=== PATIENT | male | born 1930 | race Caucasian/White ===

== ENCOUNTER 2017-03-05 19:06 | Inpatient (IN) | payer MEDICARE, BC ==
[~2017-03-05] VITALS: Ht 182.9 cm; Wt 75.0 kg
[2017-03-05 19:24] VITALS: Ht 182.9 cm; Wt 75.0 kg
[2017-03-05] MEDS ORDERED: SOD CHLORIDE 0.9% 1,000 ML IV STA (19:31)
[2017-03-05] MEDS ORDERED: DILTIAZEM 30 MG TAB PO ONE (20:00)
[2017-03-05] MEDS ORDERED: DILTIAZEM 25 MG INJ IV ONE (20:00)
[2017-03-05 20:24] LABS: BASOPHILS % 0.3 % (0.0-2.0); EOSINOPHILS % 0.1 % (0.0-7.0); HEMATOCRIT 45.5 % (42.0-52.0); HEMOGLOBIN 14.8 g/dl (14.0-18.0); LYMPHOCYTES # 1.1 10^3/ul (0.8-2.9); LYMPHOCYTES % 7.8 % (15.0-51.0); MEAN CORPUSCULAR HEMOGLOBIN 29.2 pg (29.0-33.0); MEAN CORPUSCULAR HGB CONC 32.5 g/dl (32.0-37.0); MEAN CORPUSCULAR VOLUME 89.9 fl (82.0-101.0); MEAN PLATELET VOLUME 10.7 fl (7.4-10.4); MONOCYTES % 6.7 % (0.0-11.0); NEUTROPHIL # 12.3 10^3/ul (1.6-7.5); NEUTROPHILS % 84.5 % (39.0-77.0); PLATELET COUNT 365 10^3/UL (140-415); RED BLOOD COUNT 5.06 10^6/ul (4.70-6.10); RED CELL DISTRIBUTION WIDTH 13.5 % (11.5-14.5); WHITE BLOOD COUNT 14.5 10^3/ul (4.8-10.8)
[2017-03-05 20:29] LABS: ADD UMIC YES; UR ASCORBIC ACID NEGATIVE (NEGATIVE); UR BILIRUBIN (Dip) NEGATIVE (NEGATIVE); UR BLOOD (Dip) NEGATIVE (NEGATIVE); UR CLARITY CLEAR (CLEAR); UR COLOR YELLOW (YELLOW); UR GLUCOSE (Dip) NEGATIVE (NEGATIVE); UR KETONES (Dip) NEGATIVE (NEGATIVE); UR LEUKOCYTE ESTERASE (Dip) NEGATIVE Leu/ul (NEGATIVE); UR NITRITE (Dip) NEGATIVE (NEGATIVE); UR RBC 1 /HPF (0-5); UR SPECIFIC GRAVITY (Dip) 1.023 (1.003-1.030); UR TOTAL PROTEIN (Dip) 1+ mg/dl (NEGATIVE); UR UROBILINOGEN (Dip) 2+ mg/dL (NEGATIVE)
--- NOTE | 2017-03-05 20:31 | RADRPT ---
PROCEDURE: Chest x-ray CLINICAL INDICATION: Altered mental status TECHNIQUE: Chest single view COMPARISON: None FINDINGS: There is mild cardiomegaly and an sclerotic aortic calcification. A 6 cm mass-like density is noted in the left lower lung. There is elevation left hemidiaphragm. Right lung is clear. Costophrenic ang les sharp. Bones are osteopenic. There is advanced degenerative change of bilateral glenohumeral patricia nts. IMPRESSION: 1. 6 cm mass-like density in the left lower lung. Recommend a chest CT for further evaluation. 2. Elevated left hemidiaphragm. 3. Mild cardiomegaly and atherosclerotic aortic calcification. 4. Advanced degenerative change of both shoulders RPTAT: HH .Dalton Vincent MD, Date Time Electronically viewed and signed by .Dalton Vincent MD, on 03/05/2017 20:31 .W/
[2017-03-05 20:52] LABS: ALANINE AMINOTRANSFERASE 23 IU/L (13-69); ALBUMIN 4.3 g/dl (3.3-4.9); ALBUMIN/GLOBULIN RATIO 1.16; ALKALINE PHOSPHATASE 115 IU/L (42-121); ANION GAP 17 (8-16); ASPARTATE AMINO TRANSFERASE 22 IU/L (15-46); BILIRUBIN,INDIRECT 1.2 mg/dl (0-1.1); BILIRUBIN,TOTAL 1.2 mg/dl (0.2-1.3); BLOOD UREA NITROGEN 16 mg/dl (7-20); CALCIUM 9.8 mg/dl (8.4-10.2); CARBON DIOXIDE 23 mmol/L (21-31); CHLORIDE 108 mmol/L (97-110); CREATININE 2.16 mg/dl (0.61-1.24); GLUCOSE 138 mg/dl (70-220); SODIUM 144 mmol/L (135-144)
[2017-03-05 21:00] LABS: BARBITURATES Negative (NEGATIVE); BENZODIAZEPINES Negative (NEGATIVE); CANNABINOIDS Negative (NEGATIVE); COCAINE Negative (NEGATIVE); OPIATES Negative (NEGATIVE)
[2017-03-05 21:01] LABS: ACETAMINOPHEN < 10.0 ug/ml (10.0-30.0); ETHANOL < 10.0 mg/dl; SALICYLATE < 1.0 mg/dl (5.0-30.0)
--- NOTE | 2017-03-05 21:04 | RADRPT ---
PROCEDURE: CT Brain without contrast. CLINICAL INDICATION: Altered mental status. TECHNIQUE: A CT of the brain without contrast was performed utilizing axial sections from the skul l base through the vertex. The patient was scanned without intravenous contrast enhancement. Sagitta l and coronal reformatted images were obtained using the data from the axial images. Total exam DLP is 110.25 mGy-cm. CTDIvol is 44.73 mGy. One or more of the following dose reduction techniques we re used: Automated exposure control, adjustment of the mA and/or kV according to patient size, use o f iterative reconstruction technique. COMPARISON: None available FINDINGS: There is normal delgado-white matter differentiation. There is enlargement of the ventricles and subarachnoid spaces consistent with atrophy. There is decreased attenuation of the periventricular white matter consistent with microangiopathic ischemic change. There is no intracranial hemorrhage or space-occupying lesion. There are vascular calcifications consistent with atherosclerosis. There is no skull fracture or lytic lesion. IMPRESSION: 1. Atrophy. 2. Microangiopathic ischemic change. 3. Atherosclerosis. 4. Otherwise unremarkable noncontrast CT scan of the brain. RPTAT: QQ .Olegario Perez MD, Date Time Electronically viewed and signed by .Olegario Perez MD, on 03/05/2017 21:04 .R/
[2017-03-05] MEDS ORDERED: AMLO5TAB4 PO (21:06)
[2017-03-05] MEDS ORDERED: LOSA1TAB19 PO (21:07)
[2017-03-05] MEDS ORDERED: DRON400T2 PO (21:07)
--- NOTE | 2017-03-05 21:10 | RADRPT ---
PROCEDURE: CT Cervical Spine without contrast. CLINICAL INDICATION: Neck pain. TECHNIQUE: Helical axial sections were obtained through the cervical spine without intravenous con trast enhancement. Sagittal and coronal reformatted images were accomplished using the data from th e axial images. Total exam DLP is 361.32 mGy-cm. CTDIvol is 17.06 mGy. One or more of the followi ng dose reduction techniques were used: Automated exposure control, adjustment of the mA and/or kV a ccording to patient size, use of iterative reconstruction technique. COMPARISON: No prior studies are available for comparison. FINDINGS: There is normal stature and alignment of the vertebrae. There is no fracture. At C2-3, there is a left foraminal stenosis due to hypertrophy of the facet joints. At C3-4, there is a right foraminal stenosis due to hypertrophy of the facet and uncovertebral joint s. At C4-5, there is right foraminal stenosis due to hypertrophy of the facet and uncovertebral joints. At C5-6, there is right foraminal stenosis due to hypertrophy of the facet and uncovertebral joints. At C6-7, there is right foraminal stenosis due to hypertrophy of the facet and uncovertebral joints. There is no lytic or blastic lesion. The paravertebral soft tissues are normal. IMPRESSION: 1. Multilevel spondylitic change as described above. 2. No acute abnormality. RPTAT: QQ .Olegario Perez MD, Date Time Electronically viewed and signed by .Olegario Perez MD, on 03/05/2017 21:09 .R/
[2017-03-05] MEDS ORDERED: ACETAMINOPHEN 325 MG TAB PO PRN (21:30)
[2017-03-05] MEDS ORDERED: ONDANSETRON 4 MG INJ IV PRN (21:30)
--- NOTE | 2017-03-05 21:40 | ERA ---
ER Documentation Chief Complaint Date/Time DATE: 03/05/17 TIME: 21:37 Chief Complaint aloc HPI Patient is an 86-year-old male who presents altered. Please note the history and physical exam is limited secondary to the patient's mental status. The patient was brought in by ambulance and police. He was found wandering outside and he says he is feeling dizzy. He does admit to falling and hitting his head. He does not know how he got to where he was but he does know that he is from [place]. He is able to give me the year and says it is "17" and he knows his name and he knows what state he lives in. Upon review of old medical records this is the patient's first visit to the emergency department. ROS All systems reviewed and are negative except as per history of present illness. Medications Home Meds Reported Medications Dronedarone Hydrochloride* (Multaq*) 400 Mg Tablet, 400 MG PO BID, TAB 03/05/17 Losartan-Hydrochlorothiazide (Losartan-HCTZ) 50-12.5 Mg Tab, 1 TAB PO DAILY, TAB 03/05/17 Amlodipine Besylate* (Norvasc*) 5 Mg Tablet, 5 MG PO DAILY, TAB 03/05/17 Allergies Allergies: Coded Allergies: No Known Allergy (Unverified , 03/05/17) PMhx/Soc Hx Cardiac Disorders: Yes (AFIB) Hx Alcohol Use: No Hx Tobacco Use: No Smoking Status: Never smoker FmHx Family History: No diabetes Physical Exam Vitals Vital Signs Date Time Temp Pulse Resp B/P Pulse Ox O2 Delivery O2 Flow Rate FiO2 03/05/17 21:15 105 20 122/87 95 Room Air 03/05/17 19:55 144 20 104/67 95 03/05/17 19:24 98.0 98 20 107/67 95 Physical Exam Const: Patient is disheveled and dirty Head: Abrasion to the top of the skull Eyes: Normal Conjunctiva ENT: Normal External Ears, Nose and Mouth. Neck: Full range of motion..~ No meningismus. Resp: Clear to auscultation bilaterally Cardio: Regular rate and rhythm, no murmurs Abd: Soft, non tender, non distended. Normal bowel sounds Skin: Abrasion to the top of the skull without laceration Back: No midline or flank tenderness Ext: No cyanosis, or edema Neur: Awake but confused, able to move all 4 extremities equally Psych: Normal Mood and Affect Result Diagram: 03/05/17195403/05/171954 Results 24 hrs Laboratory Tests Test 03/05/17 19:55 03/05/17 20:09 White Blood Count 14.510^3/ul Red Blood Count 5.0610^6/ul Hemoglobin 14.8g/dl Hematocrit 45.5% Mean Corpuscular Volume 89.9fl Mean Corpuscular Hemoglobin 29.2pg Mean Corpuscular Hemoglobin Concent 32.5g/dl Red Cell Distribution Width 13.5% Platelet Count 45390^3/UL Mean Platelet Volume 10.7fl Neutrophils % 84.5% Lymphocytes % 7.8% Monocytes % 6.7% Eosinophils % 0.1% Basophils % 0.3% Nucleated Red Blood Cells % 0.0/100WBC Neutrophils # 12.310^3/ul Lymphocytes # 1.110^3/ul Monocytes # 1.010^3/ul Eosinophils # 0.010^3/ul Basophils # 0.010^3/ul Nucleated Red Blood Cells # 0.010^3/ul Sodium Level 144mmol/L Potassium Level 4.0mmol/L Chloride Level 108mmol/L Carbon Dioxide Level 23mmol/L Anion Gap 17 Blood Urea Nitrogen 16mg/dl Creatinine 2.16mg/dl Glucose Level 138mg/dl Calcium Level 9.8mg/dl Total Bilirubin 1.2mg/dl Direct Bilirubin 0.00mg/dl Indirect Bilirubin 1.2mg/dl Aspartate Amino Transf (AST/SGOT) 22IU/L Alanine Aminotransferase (ALT/SGPT) 23IU/L Alkaline Phosphatase 115IU/L Total Protein 8.0g/dl Albumin 4.3g/dl Globulin 3.70g/dl Albumin/Globulin Ratio 1.16 Salicylates Level < 1.0mg/dl Acetaminophen Level < 10.0ug/ml Ethyl Alcohol Level < 10.0mg/dl Urine Color YELLOW Urine Clarity CLEAR Urine pH 5.0 Urine Specific [place] 1.023 Urine Ketones NEGATIVEmg/dL Urine Nitrite NEGATIVEmg/dL Urine Bilirubin NEGATIVEmg/dL Urine Urobilinogen 2+mg/dL Urine Leukocyte Esterase NEGATIVELeu/ul Urine Microscopic RBC 1/HPF Urine Microscopic WBC 2/HPF Urine Hemoglobin NEGATIVEmg/dL Urine Glucose NEGATIVEmg/dL Urine Total Protein 1+mg/dl Urine Opiates Screen Negative Urine Barbiturates Negative Urine Amphetamines Screen Negative Urine Benzodiazepines Screen Negative Urine Cocaine Screen Negative Urine Cannabinoids Negative Current Medications Medications (Trade) Dose Ordered Sig/Chad Route PRN Reason Start Time Stop Time Status Last Admin Dose Admin Sodium Chloride (NS) 1,000 ml @ 1,000 mls/hr Q1H STAT IV 03/05/17 19:31 03/05/17 20:30 DC 03/05/17 20:15 Diltiazem HCl (Cardizem Iv) 10 mg ONCE ONCE IV 03/05/17 20:00 03/05/17 20:06 DC 03/05/17 20:15 Diltiazem HCl (Cardizem) 30 mg ONCE ONCE PO 03/05/17 20:00 03/05/17 20:01 DC 03/05/17 20:43 Ondansetron HCl (Zofran Inj) 4 mg ER BRIDGE PRN IV NAUSEA AND/OR VOMITING 03/05/17 21:30 03/06/17 21:29 Acetaminophen (Tylenol Tab) 650 mg ER BRIDGE PRN PO MILD PAIN/FEVER 03/05/17 21:30 03/06/17 21:29 Procedures/MDM CT brain shows no intracranial hemorrhage or mass per radiology. EKG read by me: Rate/Rhythm: Atrial fibrillation with rapid ventricular response Intervals: Normal Impression: A. fib with RVR Patient is an 86 year old male who presents with dizziness. He was found wandering and confused. In the emergency department he was found to have A. fib with RVR and was given diltiazem IV and by mouth. The patient was also found to have acute renal failure as he has a creatinine of greater than 2 and no old creatinine to compare to. I see no obvious signs of serious bacterial infection at this time. I doubt stroke, intracranial hemorrhage, or intracranial mass. The patient will be admitted to the care of Dr. Jacques from the panel team for further treatment. He will be admitted to a telemetry bed. Critical Care: Time: 35 minutes excluding all billable procedures. Treatments/Evaluations: Close monitoring and treatment of unstable vital signs, cardiorespiratory, and neurologic status, while maintaining tight balance of fluid, respiratory, and cardiac interventions. Departure Diagnosis: Primary Impression: Atrial fibrillation with RVR Additional Impressions: ARF (acute renal failure) Qualified Code: N17.9 - Acute renal failure, unspecified acute renal failure type Altered level of consciousness Condition: [place] Alston MD Mar 05, 2017 21:40
[2017-03-05 23:54] VITALS: PULSE 92
[2017-03-06] VITALS (14 sets, daily range): BP systolic 104–122; BP diastolic 77–84; PULSE 78–107; RESP 16–19
[2017-03-06] MEDS ORDERED: ALBUTEROL/IPRATROPIUM (NEB) 3 ML AMP HHN PRN (01:30)
[2017-03-06] MEDS ORDERED: NITROGLYCERIN (SL) 0.4 MG TAB SL PRN (01:30)
[2017-03-06] MEDS ORDERED: morphine 2 MG INJ IV PRN (01:30)
[2017-03-06] MEDS ORDERED: ONDANSETRON 4 MG INJ IV PRN (01:30)
[2017-03-06] MEDS ORDERED: ACETAMINOPHEN 325 MG TAB PO PRN (01:30)
[2017-03-06] MEDS ORDERED: NACL 0.9% 3 ML SYG IV SCH (01:30)
[2017-03-06] MEDS: METOPROLOL 25 MG TAB PO SCH ×3 (02:07→20:45)
[2017-03-06 03:00] LABS: TROPONIN-I 0.027 ng/ml (0.00-0.12)
[2017-03-06 03:09] LABS: CK-MB 1.09 ng/ml (0.0-2.4)
--- NOTE | 2017-03-06 05:47 | HP ---
Date/Time of Note Date/Time of Note DATE: 03/06/17 TIME: 05:31 Assessment/Plan VTE Prophylaxis VTE Prophylaxis Intervention: heparin Lines/Catheters IV C[facility]from [facility] Assessment/Plan Assessment/Plan 1. Acute encephalopathy: Resolved -Patient probably with some dementia -Head CT negative for acute findings -We will consider additional imaging with MRI -Neurology consult -Physical therapy eval -Check TSH, folate and B12 2. A-fib with RVR -s/p IV Cardizem and now is rate controlled -2D echo and cardiology consult 3. Presumed CKD -will give IV fluid for now -If no significant improvement or worsens, will order renal ultrasound and place a nephrology consult 4. Left lower lung masslike density -CT chest for further evaluation 5. Sepsis: As evidenced by leukocytosis and tachycardia -Masslike density that was shown on the chest x-ray could possibly be an infectious etiology -UA negative for UTI -Will start on antibiotic -Follow-up culture results 6. 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 Patient was brought to the ER for altered mentation. His is currently at a facility because of altered mentation. Patient left his house driving to see his . He was however found by police walking around [employer]. Seems like he has been wandering around for a few hours. Patient was confused and did not know why he was walking around. Per ER notes, he reported falling down and hitting his head but on my questioning he denied. Currently he does not have any complaints. He is alert and oriented and no neurological deficits on exam. In ER, he was found to be in A-fib with RVR. He was given IV diltiazem and now is rate controlled. Labs shows a WBC of 14.5 and creatinine of 2.[address] of the head showed microangiopathic ischemic change and atrophy. CT of the neck multilevel spondylosis. Chest x-ray with 6 cm mass-like density in the left lower lung. Recommend a chest CT for further evaluation. PMH/Family/Social Social History Smoking Status: Former smoker Exam/Review of Systems Vital Signs Vitals Vital Signs Date Time p Pulse Resp B/P Pulse Ox O2 Delivery O2 Flow Rate FiO2 03/06/17 04:06 98.1 76 18 122/79 97 03/05/17 23:25 Room Air Exam Constitutional: alert, oriented, well developed Head: lacerations Eyes: EOMI, PERRL Respiratory: clear to auscultation, normal air movement Cardiovascular: irregular rhythm Gastrointestinal: non-tender, soft Extremities: normal pulses Labs Result Diagram: 03/05/17195403/05/171954 Medications Medications Current Medications Ondansetron HCl (Zofran Inj) 4 mg Q6H PRN IV NAUSEA AND/OR VOMITING; Start at 01:30 Aspirin (Aspirin) 81 mg DAILY PO ; Start 03/06/17 at 09:00 Nitroglycerin (Nitroglycerin (Sl Tab) 0.4 Mg) 1 tab Q5M PRN SL CHEST PAIN; Start 03/06/17 at 01:30 Acetaminophen (Tylenol Tab) 650 mg Q6H PRN PO PAIN LEVEL 1-3 OR FEVER; Start at 01:30 Morphine Sulfate (morphine) 2 mg Q4H PRN IV PAIN LEVEL 7-10; Start 03/06/17 at 01:30 Famotidine (Pepcid) 20 mg DAILY PO ; Start 03/06/17 at 09:00 Heparin Sodium (Porcine) (Heparin (5000 Units/0.5 ml)) 5,000 unit Q12 SC ; Start 03/06/17 at 09:00 Metoprolol Tartrate (Lopressor) 25 mg BID PO Last administered on 03/06/17t 02: 07; Admin Dose 25 MG; Start 03/06/17 at 01:30 CHRISTIAN MEDINA MD Mar 06, 2017 05:43
[2017-03-06 07:35] LABS: BASOPHILS % 0.4 % (0.0-2.0); EOSINOPHILS % 0.4 % (0.0-7.0); HEMATOCRIT 39.5 % (42.0-52.0); HEMOGLOBIN 12.3 g/dl (14.0-18.0); LYMPHOCYTES # 2.7 10^3/ul (0.8-2.9); MEAN CORPUSCULAR HGB CONC 31.1 g/dl (32.0-37.0); MEAN CORPUSCULAR VOLUME 89.8 fl (82.0-101.0); MONOCYTE # 0.8 10^3/ul (0.3-0.9); MONOCYTES % 8.3 % (0.0-11.0); NEUTROPHIL # 5.6 10^3/ul (1.6-7.5); NEUTROPHILS % 61.6 % (39.0-77.0); PLATELET COUNT 286 10^3/UL (140-415); RED CELL DISTRIBUTION WIDTH 13.8 % (11.5-14.5); WHITE BLOOD COUNT 9.2 10^3/ul (4.8-10.8)
[2017-03-06 08:07] LABS: ALBUMIN 2.9 g/dl (3.3-4.9); ALBUMIN/GLOBULIN RATIO 0.9; BILIRUBIN,INDIRECT 0.5 mg/dl (0-1.1); BILIRUBIN,TOTAL 0.5 mg/dl (0.2-1.3); CALCIUM 8.8 mg/dl (8.4-10.2); CHOL/HDL RATIO 3.3 RATIO; POTASSIUM 4.5 mmol/L (3.5-5.1); TOTAL PROTEIN 6.1 g/dl (6.1-8.1)
[2017-03-06 08:12] LABS: TROPONIN-I 0.034 ng/ml (0.00-0.12)
[2017-03-06 08:16] LABS: CK-MB 1.59 ng/ml (0.0-2.4)
[2017-03-06 08:34] LABS: THYROID STIMULATING HORMONE 2.18 MIU/L (0.465-4.680)
[2017-03-06] MEDS: ASPIRIN 81 MG TAB PO SCH (08:58)
[2017-03-06] MEDS: FAMOTIDINE 20 MG TAB PO SCH (08:58)
[2017-03-06] MEDS: HEPARIN 5,000 UNIT/0.5 ML VIAL SC SCH ×2 (09:10→20:45)
--- NOTE | 2017-03-06 13:34 | CONS ---
Date/Time of Note Date/Time of Note DATE: 03/06/17 TIME: 13:28 Assessment/Plan Assessment/Plan Additional Assessment/Plan Atrial fibrillation with rapid ventricular rates, improved Encephalopathy Abnormal renal function Lung mass -Heart rate is currently improved. Was previously on Multaq. Would hold nephrotoxic meds including diuretic. Check echocardiogram. Consultation Date/Type/Reason Admit Date/Time Mar 05, 2017 at 21:29 Type of Consultation: cv Reason for Consultation Atrial fibrillation Hx of Present Illness This is a 86-year-old male with past medical history of atrial fibrillation, possible cancer who presented with altered mental status and atrial fibrillation with rapid ventricular rates. Discussed with patient, he is not sure the details of why he is in the hospital. He denies any chest pain, palpitations, shortness of breath. He denies exertional shortness of breath, palpitations or chest pain. He does have a known history of atrial ablation but has not been on any anticoagulants. He was taking Multaq in the past. 12 point review of systems was performed with all pertinent positives and negatives mentioned above and all else is negative Past Medical History Atrial fibrillation Possible malignancy Past Surgical History Head surgery Family History Significant Family History: no pertinent family hx Social History Alcohol Use: none Smoking Status: Former smoker Exam/Review of Systems Vital Signs Vitals Vital Signs Date Time Temp Pulse Resp B/P Pulse Ox O2 Delivery O2 Flow Rate FiO2 03/06/17 12:15 78 03/06/17 11:53 98.2 16 104/84 95 03/05/17 23:25 Room Air Intake and Output 03/05/17 03/05/17 03/06/17 15:00 23:00 07:00 Intake Total 700 ml Output Total 200 ml Balance 500 ml Exam To person and place, no apparent distress Constitutional: alert, oriented Head: normocephalic Respiratory: other (Coarse breath sounds bilaterally, no wheezing) Cardiovascular: irregular rhythm, other (S1-S2 heard) Gastrointestinal: bowel sounds, non-tender, soft Extremities: other (No edema) Results Result Diagram: 03/06/17 0653 03/06/17 0653 Results 24 hrs Laboratory Tests Test 03/05/17 19:55 03/05/17 20:09 03/06/17 01:49 03/06/17 06:53 White Blood Count 14.5 H 9.2 # Red Blood Count 5.06 4.40 L Hemoglobin 14.8 12.3 L Hematocrit 45.5 39.5 L Mean Corpuscular Volume 89.9 89.8 Mean Corpuscular Hemoglobin 29.2 28.0 L Mean Corpuscular Hemoglobin Concent 32.5 31.1 L Red Cell Distribution Width 13.5 13.8 Platelet Count 365 286 # Mean Platelet Volume 10.7 H 11.0 H Neutrophils % 84.5 H 61.6 Lymphocytes % 7.8 L 29.0 Monocytes % 6.7 8.3 Eosinophils % 0.1 0.4 Basophils % 0.3 0.4 Nucleated Red Blood Cells % 0.0 0.0 Neutrophils # 12.3 H 5.6 Lymphocytes # 1.1 2.7 Monocytes # 1.0 H 0.8 Eosinophils # 0.0 0.0 Basophils # 0.0 0.0 Nucleated Red Blood Cells # 0.0 0.0 Sodium Level 144 139 Potassium Level 4.0 4.5 Chloride Level 108 108 Carbon Dioxide Level 23 26 Anion Gap 17 H 10 # Blood Urea Nitrogen 16 24 H Creatinine 2.16 H 2.00 H Glucose Level 138 76 # Calcium Level 9.8 8.8 Total Bilirubin 1.2 0.5 Direct Bilirubin 0.00 0.00 Indirect Bilirubin 1.2 H 0.5 Aspartate Amino Transf (AST/SGOT) 22 21 Alanine Aminotransferase (ALT/SGPT) 23 24 Alkaline Phosphatase 115 72 Total Protein 8.0 6.1 # Albumin 4.3 2.9 #L Globulin 3.70 H 3.20 Albumin/Globulin Ratio 1.16 0.90 Salicylates Level < 1.0 L Acetaminophen Level < 10.0 L Ethyl Alcohol Level < 10.0 Urine Color YELLOW Urine Clarity CLEAR Urine pH 5.0 Urine Specific [place] 1.023 Urine Ketones NEGATIVE Urine Nitrite NEGATIVE Urine Bilirubin NEGATIVE Urine Urobilinogen 2+ H Urine Leukocyte Esterase NEGATIVE Urine Microscopic RBC 1 Urine Microscopic WBC 2 Urine Hemoglobin NEGATIVE Urine Glucose NEGATIVE Urine Total Protein 1+ H Urine Opiates Screen Negative Urine Barbiturates Negative Urine Amphetamines Screen Negative Urine Benzodiazepines Screen Negative Urine Cocaine Screen Negative Urine Cannabinoids Negative Creatine Kinase 51 65 Creatine Kinase Index 2.1 2.4 Creatinine Kinase MB (Mass) 1.09 1.59 Troponin I 0.027 0.034 Hemoglobin A1c 5.2 Magnesium Level 2.0 Triglycerides Level 66 Cholesterol Level 106 LDL Cholesterol, Calculated 61 HDL Cholesterol 32 Cholesterol/HDL Ratio 3.3 Thyroid Stimulating Hormone (TSH) 2.180 Medications Medications Current Medications Ondansetron HCl (Zofran Inj) 4 mg Q6H PRN IV NAUSEA AND/OR VOMITING; Start at 01:30 Aspirin (Aspirin) 81 mg DAILY PO Last administered on 03/06/17 08:58; Admin Dose 81 MG; Start 03/06/17 at 09:00 Nitroglycerin (Nitroglycerin (Sl Tab) 0.4 Mg) 1 tab Q5M PRN SL CHEST PAIN; Start 03/06/17 at 01:30 Acetaminophen (Tylenol Tab) 650 mg Q6H PRN PO PAIN LEVEL 1-3 OR FEVER; Start at 01:30 Morphine Sulfate (morphine) 2 mg Q4H PRN IV PAIN LEVEL 7-10; Start 03/06/17 at 01:30 Famotidine (Pepcid) 20 mg DAILY PO Last administered on 03/06/17 08:58; Admin Dose 20 MG; Start 03/06/17 at 09:00 Heparin Sodium (Porcine) (Heparin (5000 Units/0.5 ml)) 5,000 unit Q12 SC Last administered on 03/06/17 09:10; Admin Dose 5,000 UNIT; Start 03/06/17 at 09:00 Metoprolol Tartrate (Lopressor) 25 mg BID PO Last administered on 03/06/17 08: 59; Admin Dose 25 MG; Start 03/06/17 at 01:30 Procedures Procedures ECG done yesterday at 2203 demonstrates atrial fibrillation at 93 bpm, QRS 74 ms , nonspecific ST abnormalities Jay Shepard DO Mar 06, 2017 13:34
--- NOTE | 2017-03-06 13:45 | RADRPT ---
PROCEDURE: CT Chest without contrast. CLINICAL INDICATION: Mass in left lower lung measuring 6 cm seen on prior chest x-ray. TECHNIQUE: Helical axial sections were obtained through the chest without intravenous contrast enh ancement. Coronal and sagittal reformatted images were obtained from the axial source images. Total exam DLP is 388.95 mGy-cm. CTDIvol is 9.44 mGy. One or more of the following dose reduction tech niques were used: Automated exposure control, adjustment of the mA and/or kV according to patient si ze, use of iterative reconstruction technique. COMPARISON: Chest x-ray dated 03/05/2017. FINDINGS: There is a mass in the lingula measuring 7.6 by 5.9 cm in AP and transverse dimensions. There is mil d adjacent atelectatic lung. There is mild atelectasis in the left lower lobe posteriorly. The lungs are otherwise clear with no other airspace or interstitial disease. There is no other pulmonary nodule or mass lesion. There is no mediastinal or hilar lymphadenopathy or mass. There is no axillary, supraclavicular, or internal mammary lymphadenopathy. The thoracic aorta is not dilated. There is calcification in the aorta consistent with atheroscleros is. The heart is mildly enlarged. There is coronary artery calcification. There is no right pleural effusion. There is a small left pleural effusion. There is no pericardial effusion. Images through the upper abdomen demonstrate a benign cyst in the right hepatic lobe laterally measu ring 4 point by 3.1 cm. The visualized portions of the liver, spleen, and adrenals are otherwise nor mal. There is flowing ossification along the anterolateral aspect of 7 contiguous lower thoracic vertebra l bodies, with preservation of disk height consistent with diffuse idiopathic skeletal hyperostosis (DISH). There is no fracture or lytic lesion. IMPRESSION: 1. Mass in the lingula, suspicious for neoplasm. 2. Mild adjacent atelectatic lung in the lingula and left lower lobe. 3. Atherosclerosis. 4. Mild cardiomegaly. Coronary artery calcification. 5. Small left pleural effusion. 6. Benign cyst in the right hepatic lobe. 7. Diffuse idiopathic skeletal hyperostosis. 8. Otherwise unremarkable study. RPTAT: QQ .Olegario Perez MD, Date Time Electronically viewed and signed by .Olegario Perez MD, on 03/06/2017 13:45 .R/
--- NOTE | 2017-03-06 13:52 | RADRPT ---
Echocardiogram Report Patient Name: ALAN HOFF Gender: Male Date: 1930 Study Date: 06-Mar-2017 Inhalation Therapist: Arturo Maldonado [facility] Location: 508 Ref. Physician: CHRISTIAN MEDINA Quality: Good Procedures: Transthoracic echocardiogram with complete 2D, M-Mode, and doppler examination. Indications: Atrial Fibrillation w/ RVR. 2D/M Mode Doppler Measurement Value Normal Ranges Measurement Value Normal Ranges LVIDd 2D 3.6 3.5 - 5.6 cm AV Peak [place] 1.1 m/sec LVIDs 2D 2.7 2.1 - 4.1 cm AV Peak PG 5.0 mmHg FS 2D 26.6 % LVOT Peak [place] 0.9 m/sec LVPWd 2D 1.3 0.6 - 1.1 cm LVOT Peak PG 3.0 mmHg IVSd 2D 1.3 0.6 - 1.1 cm MV E Peak [place] 1.0 m/sec IVS/LVPW 2D 1.0 MV Decel Time 176 msec AoR Diam 2D 3.3 2.0 - 3.7 cm MR Peak PG 94.0 mmHg LA/Ao 2D 1 0 - 1 MR Peak [place] 4.9 m/sec EDV 2D 48.2 cm3 TR Peak [place] 2.5 m/sec ESV 2D 19.0 cm3 TR Peak PG 25.0 mmHg LA Dimen 2D 3.4 2.3 - 4.0 cm RVSP 40.0 mmHg Findings Left Ventricle: Normal left ventricular systolic function. Normal left ventricular cavity size. Mild concentric left ventricular hypertrophy. Ejection fraction is visually estimated at 60 %. Right Ventricle: Normal right ventricular size. Normal right ventricular systolic function. Left Atrium: The left atrium is normal in size. Right Atrium: The right atrium is normal in size. Mitral Valve: Mitral valve leaflets appear mildly thickened. Mild mitral valve regurgitation. Aortic Valve: No hemodynamically significant aortic stenosis by doppler. Aortic cusps appear mildly calcified. Trace aortic valve regurgitation. Tricuspid Valve: Normal appearance of the tricuspid valve. Estimated peak PA systolic pressure 40 mmHg. There is mild tricuspid regurgitation. Pulmonic Valve: Pulmonic valve not well visualized. Pericardium: Normal pericardium with no significant pericardial effusion. Aorta: Normal aortic root. IVC: Dilated IVC without respiratory collapse consistent with elevated right atrial pressure. Conclusions 1.Normal left ventricular systolic function. Normal left ventricular cavity size. Mild concentric left ventricular hypertrophy. Ejection fraction is visually estimated at 60 %. 2.Normal right ventricular size. Normal right ventricular systolic function. 3.The left atrium is normal in size. 4.The right atrium is normal in size. 5.Mitral valve leaflets appear mildly thickened. Mild mitral valve regurgitation. 6.No hemodynamically significant aortic stenosis by doppler. Aortic cusps appear mildly calcified. Trace aortic valve regurgitation. 7.Normal appearance of the tricuspid valve. Estimated peak PA systolic pressure 40 mmHg. There is mild tricuspid regurgitation. 8.Normal pericardium with no significant pericardial effusion. 9.Dilated IVC without respiratory collapse consistent with elevated right atrial pressure. Electronically Signed By: Eduard Zheng 06-Mar-2017 13:51:52 -0700 Patient Name: ALAN HOFF Study Date: 06-Mar-2017 [id number]
--- NOTE | 2017-03-06 14:47 | RADRPT ---
PROCEDURE: Renal US. CLINICAL INDICATION: Acute kidney injury. TECHNIQUE: Multiple sonographic images of the kidneys and urinary bladder were obtained. The imag es were reviewed on a PACS workstation. COMPARISON: No prior studies are available for comparison. FINDINGS: The right kidney measures 11.1 cm. The left kidney measures 10.3 cm. There is no solid renal mass. There is a benign cyst in the upper right kidney measuring 4.6 cm and a benign cyst in the lower right kidney measuring 2.8 cm. There is no hydronephrosis. There is no renal calculus. Renal parenchymal thickness is normal bilaterally. Echogenicity is normal bilaterally. The perirenal regions are normal with no fluid collection or mass. The bladder is unremarkable with no mass or calculus. The prostate is normal in size. IMPRESSION: 1. Benign right renal cysts. 2. No hydronephrosis. 3. Otherwise normal renal ultrasound. RPTAT: QQ .Olegario Perez MD, MD Date Time Electronically viewed and signed by .Olegario Perez MD, on 03/06/2017 14:47 .R/
--- NOTE | 2017-03-06 17:16 | PN ---
Date/Time of Note Date/Time of Note DATE: 03/06/17 TIME: 17:15 Assessment/Plan VTE Prophylaxis VTE Prophylaxis Intervention: ambulation Lines/Catheters IV Catheter Type (from [facility]): Saline Lock Urinary Cath still in place: No Assessment/Plan Chief Complaint/Hosp Course Patient is a 86-year-old male with past medical history of hypertension, atrial fibrillation who presents for acute encephalopathy and A. fib with RVR. Assessment Acute encephalopathy, waxing and waning with time of day Questionable ing A. 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 Otherwise around noontime, patient is completely alert and oriented and very well informed on his situation and medications -Follow-up echo - Problems: Subjective 24 Hr Interval Summary Free Text/Dictation no acute complaints, is receptive to all treatment. Exam/Review of Systems Vital Signs Vitals Vital Signs Date Time Temp Pulse Resp B/P Pulse Ox O2 Delivery O2 Flow Rate FiO2 03/06/17 16:33 80 03/06/17 15:45 98.2 16 104/80 96 03/05/17 23:25 Room Air Intake and Output 03/05/17 03/05/17 03/06/17 15:00 23:00 07:00 Intake Total 700 ml Output Total 200 ml Balance 500 ml Exam Physical exam General: Patient is laying in bed and answers questions appropriately Mentation: Patient is alert and oriented 4, Head: Normocephalic, small abrasion on the most superior aspect. Eyes: EOMI, pupils reactive to light Neck: Supple, nontender, midline Respiratory: Clear to auscultation bilaterally Cardiovascular: regular rate, no obvious murmurs Gastrointestinal: non-tender to palpation, bowel sounds heard. Neurological: Moves all extremities spontaneously Skin: No new skin lesions Results Result Diagram: 03/06/17 0653 03/06/17 0653 Results 24 hrs Laboratory Tests Test 03/05/17 19:55 03/05/17 20:09 03/06/17 01:49 03/06/17 06:53 White Blood Count 14.5 H 9.2 # Red Blood Count 5.06 4.40 L Hemoglobin 14.8 12.3 L Hematocrit 45.5 39.5 L Mean Corpuscular Volume 89.9 89.8 Mean Corpuscular Hemoglobin 29.2 28.0 L Mean Corpuscular Hemoglobin Concent 32.5 31.1 L Red Cell Distribution Width 13.5 13.8 Platelet Count 365 286 # Mean Platelet Volume 10.7 H 11.0 H Neutrophils % 84.5 H 61.6 Lymphocytes % 7.8 L 29.0 Monocytes % 6.7 8.3 Eosinophils % 0.1 0.4 Basophils % 0.3 0.4 Nucleated Red Blood Cells % 0.0 0.0 Neutrophils # 12.3 H 5.6 Lymphocytes # 1.1 2.7 Monocytes # 1.0 H 0.8 Eosinophils # 0.0 0.0 Basophils # 0.0 0.0 Nucleated Red Blood Cells # 0.0 0.0 Sodium Level 144 139 Potassium Level 4.0 4.5 Chloride Level 108 108 Carbon Dioxide Level 23 26 Anion Gap 17 H 10 # Blood Urea Nitrogen 16 24 H Creatinine 2.16 H 2.00 H Glucose Level 138 76 # Calcium Level 9.8 8.8 Total Bilirubin 1.2 0.5 Direct Bilirubin 0.00 0.00 Indirect Bilirubin 1.2 H 0.5 Aspartate Amino Transf (AST/SGOT) 22 21 Alanine Aminotransferase (ALT/SGPT) 23 24 Alkaline Phosphatase 115 72 Total Protein 8.0 6.1 # Albumin 4.3 2.9 #L Globulin 3.70 H 3.20 Albumin/Globulin Ratio 1.16 0.90 Salicylates Level < 1.0 L Acetaminophen Level < 10.0 L Ethyl Alcohol Level < 10.0 Urine Color YELLOW Urine Clarity CLEAR Urine pH 5.0 Urine Specific [place] 1.023 Urine Ketones NEGATIVE Urine Nitrite NEGATIVE Urine Bilirubin NEGATIVE Urine Urobilinogen 2+ H Urine Leukocyte Esterase NEGATIVE Urine Microscopic RBC 1 Urine Microscopic WBC 2 Urine Hemoglobin NEGATIVE Urine Glucose NEGATIVE Urine Total Protein 1+ H Urine Opiates Screen Negative Urine Barbiturates Negative Urine Amphetamines Screen Negative Urine Benzodiazepines Screen Negative Urine Cocaine Screen Negative Urine Cannabinoids Negative Creatine Kinase 51 65 Creatine Kinase Index 2.1 2.4 Creatinine Kinase MB (Mass) 1.09 1.59 Troponin I 0.027 0.034 Hemoglobin A1c 5.2 Magnesium Level 2.0 Triglycerides Level 66 Cholesterol Level 106 LDL Cholesterol, Calculated 61 HDL Cholesterol 32 Cholesterol/HDL Ratio 3.3 Thyroid Stimulating Hormone (TSH) 2.180 Medications Medications Current Medications Ondansetron HCl (Zofran Inj) 4 mg Q6H PRN IV NAUSEA AND/OR VOMITING; Start at 01:30 Aspirin (Aspirin) 81 mg DAILY PO Last administered on 03/06/17 08:58; Admin Dose 81 MG; Start 03/06/17 at 09:00 Nitroglycerin (Nitroglycerin (Sl Tab) 0.4 Mg) 1 tab Q5M PRN SL CHEST PAIN; Start 03/06/17 at 01:30 Acetaminophen (Tylenol Tab) 650 mg Q6H PRN PO PAIN LEVEL 1-3 OR FEVER; Start at 01:30 Morphine Sulfate (morphine) 2 mg Q4H PRN IV PAIN LEVEL 7-10; Start 03/06/17 at 01:30 Famotidine (Pepcid) 20 mg DAILY PO Last administered on 03/06/17 08:58; Admin Dose 20 MG; Start 03/06/17 at 09:00 Heparin Sodium (Porcine) (Heparin (5000 Units/0.5 ml)) 5,000 unit Q12 SC Last administered on 03/06/17 09:10; Admin Dose 5,000 UNIT; Start 03/06/17 at 09:00 Metoprolol Tartrate (Lopressor) 25 mg BID PO Last administered on 03/06/17 08: 59; Admin Dose 25 MG; Start 03/06/17 at 01:30 ELAINE DANIEL Mar 06, 2017 17:16
[2017-03-06] MEDS: DRONEDARONE HYDROCHLORIDE 400 MG TAB PO SCH (17:59)
[2017-03-06 20:17] LABS: MAGNESIUM 1.9 mg/dl (1.7-2.5); POTASSIUM 4.6 mmol/L (3.5-5.1)
[2017-03-07] VITALS (12 sets, daily range): BP systolic 113–155; BP diastolic 69–99; PULSE 68–90; RESP 18–20
[2017-03-07] MEDS: DRONEDARONE HYDROCHLORIDE 400 MG TAB PO SCH ×2 (07:55→09:18)
[2017-03-07 08:10] LABS: BASOPHILS % 0.2 % (0.0-2.0); EOSINOPHILS # 0.1 10^3/ul (0.0-0.5); EOSINOPHILS % 1.1 % (0.0-7.0); HEMATOCRIT 38.9 % (42.0-52.0); HEMOGLOBIN 12.4 g/dl (14.0-18.0); LYMPHOCYTES # 1.9 10^3/ul (0.8-2.9); LYMPHOCYTES % 21.5 % (15.0-51.0); MEAN CORPUSCULAR HEMOGLOBIN 28.3 pg (29.0-33.0); MEAN CORPUSCULAR HGB CONC 31.9 g/dl (32.0-37.0); MEAN CORPUSCULAR VOLUME 88.8 fl (82.0-101.0); MEAN PLATELET VOLUME 10.9 fl (7.4-10.4); MONOCYTE # 0.7 10^3/ul (0.3-0.9); MONOCYTES % 7.8 % (0.0-11.0); NEUTROPHIL # 6.1 10^3/ul (1.6-7.5); NEUTROPHILS % 69.2 % (39.0-77.0); PLATELET COUNT 261 10^3/UL (140-415); RED BLOOD COUNT 4.38 10^6/ul (4.70-6.10); RED CELL DISTRIBUTION WIDTH 13.6 % (11.5-14.5); WHITE BLOOD COUNT 8.8 10^3/ul (4.8-10.8)
[2017-03-07 08:31] LABS: CALCIUM 8.7 mg/dl (8.4-10.2); CREATININE 1.53 mg/dl (0.61-1.24); MAGNESIUM 1.8 mg/dl (1.7-2.5); PHOSPHORUS 3.2 mg/dl (2.5-4.9); POTASSIUM 4.7 mmol/L (3.5-5.1)
[2017-03-07] MEDS: ASPIRIN 81 MG TAB PO SCH (09:10)
[2017-03-07] MEDS: METOPROLOL 25 MG TAB PO SCH ×2 (09:11→20:36)
[2017-03-07] MEDS: FAMOTIDINE 20 MG TAB PO SCH (09:11)
[2017-03-07] MEDS: HEPARIN 5,000 UNIT/0.5 ML VIAL SC SCH ×2 (09:15→20:37)
--- NOTE | 2017-03-07 11:56 | PN ---
Date/Time of Note Date/Time of Note DATE: 03/07/17 TIME: 11:56 Assessment/Plan VTE Prophylaxis VTE Prophylaxis Intervention: SCD's Lines/Catheters IV Catheter Type (from Nrsg): Saline Lock Urinary Cath still in place: Yes Reason Cath still needed: urinary retention Assessment/Plan Assessment/Plan Atrial fibrillation with rapid ventricular rates, improved Encephalopathy Abnormal renal function Lung mass -Heart rate is currently improved. Was previously on Multaq. Would hold nephrotoxic meds including diuretic. Subjective 24 Hr Interval Summary Free Text/Dictation the patinet with no change Exam/Review of Systems Vital Signs Vitals Vital Signs Date Time Temp Pulse Resp B/P Pulse Ox O2 Delivery O2 Flow Rate FiO2 03/07/17 08:25 90 03/07/17 07:12 97.8 20 147/83 97 03/05/17 23:25 Room Air Intake and Output 03/06/17 03/06/17 03/07/17 15:00 23:00 07:00 Intake Total 450 ml Output Total 600 ml Balance -150 ml Results Result Diagram: 03/07/1722 03/07/17 0722 Results 24 hrs Laboratory Tests Test 03/06/17 15:35 03/06/17 19:48 03/07/17 07:22 Urine Random Creatinine 226.33 Urine Random Sodium 80 Urine Random Potassium 71.0 Potassium Level 4.6 4.7 Magnesium Level 1.9 1.8 White Blood Count 8.8 Red Blood Count 4.38 L Hemoglobin 12.4 L Hematocrit 38.9 L Mean Corpuscular Volume 88.8 Mean Corpuscular Hemoglobin 28.3 L Mean Corpuscular Hemoglobin Concent 31.9 L Red Cell Distribution Width 13.6 Platelet Count 261 Mean Platelet Volume 10.9 H Neutrophils % 69.2 Lymphocytes % 21.5 Monocytes % 7.8 Eosinophils % 1.1 Basophils % 0.2 Nucleated Red Blood Cells % 0.0 Neutrophils # 6.1 Lymphocytes # 1.9 Monocytes # 0.7 Eosinophils # 0.1 Basophils # 0.0 Nucleated Red Blood Cells # 0.0 Sodium Level 137 Chloride Level 106 Carbon Dioxide Level 25 Anion Gap 11 Blood Urea Nitrogen 26 H Creatinine 1.53 H Glucose Level 78 Calcium Level 8.7 Phosphorus Level 3.2 Medications Medications Current Medications Ondansetron HCl (Zofran Inj) 4 mg Q6H PRN IV NAUSEA AND/OR VOMITING; Start at 01:30 Aspirin (Aspirin) 81 mg DAILY PO Last administered on 03/07/17 09:10; Admin Dose 81 MG; Start 03/06/17 at 09:00 Nitroglycerin (Nitroglycerin (Sl Tab) 0.4 Mg) 1 tab Q5M PRN SL CHEST PAIN; Start 03/06/17 at 01:30 Acetaminophen (Tylenol Tab) 650 mg Q6H PRN PO PAIN LEVEL 1-3 OR FEVER; Start at 01:30 Morphine Sulfate (morphine) 2 mg Q4H PRN IV PAIN LEVEL 7-10; Start 03/06/17 at 01:30 Famotidine (Pepcid) 20 mg DAILY PO Last administered on 03/07/17 09:11; Admin Dose 20 MG; Start 03/06/17 at 09:00 Heparin Sodium (Porcine) (Heparin (5000 Units/0.5 ml)) 5,000 unit Q12 SC Last administered on 03/07/17 09:15; Admin Dose 5,000 UNIT; Start 03/06/17 at 09:00 Metoprolol Tartrate (Lopressor) 25 mg BID PO Last administered on 03/07/17 09: 11; Admin Dose 25 MG; Start 03/06/17 at 01:30 JAY JAY DIAZ MD Mar 07, 2017 11:56
--- NOTE | 2017-03-07 17:43 | PN ---
Date/Time of Note Date/Time of Note DATE: 03/07/17 TIME: 17:34 Assessment/Plan VTE Prophylaxis VTE Prophylaxis Intervention: SCD's Lines/Catheters IV Catheter Type (from Nrs): Saline Lock Urinary Cath still in place: Yes Reason Cath still needed: urinary retention, terminal illness/intractable pain Assessment/Plan Chief Complaint/Hosp Course Patient is a 86-year-old male with past medical history of hypertension, atrial fibrillation who presents for acute encephalopathy and A. fib with RVR. Assessment Acute encephalopathy, waxing and waning with time of day Questionable sundowning A. fib with RVR, stable rate controlled Acute kidney injury versus chronic kidney disease Left lung mass. 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 Patient has episodes of sundowning and the patient is not dependable to follow up as he may forget. Attempted to call patient's PCP, office not open, patient unable to produce phone numbers for grandson who lives in the area. Will consult social services analyst to get help with finding numbers. -Cardiology consulted for atrial fibrillation, restarted multaq. -Patient appears to become more confused as the day goes on, questionable sundowning, would explain patient's issue of getting lost while trying to go to his 's hospital. Otherwise around noontime, patient is completely alert and oriented and very well informed on his situation and medications -echo noted -renal function has improved, fena suggests pre-renal, possible that patient was volume depleted due to confusion/sundowning -PT/OT, will need to get a hold of someone to assure outpatient cancer workup before DC. Patient is not dependable to live at home alone at this time given sundowning. Problems: Subjective 24 Hr Interval Summary Free Text/Dictation does not remember events of confusion. per nurse, has more confusion past 3pm, near perfect cognition in the early AM to noon. Exam/Review of Systems Vital Signs Vitals Vital Signs Date Time Temp Pulse Resp B/P Pulse Ox O2 Delivery O2 Flow Rate FiO2 03/07/17 16:40 86 03/07/17 16:19 97.4 20 134/93 97 03/05/17 23:25 Room Air Intake and Output 03/06/17 03/06/17 03/07/17 15:00 23:00 07:00 Intake Total 450 ml Output Total 600 ml Balance -150 ml Exam Physical exam General: Patient is laying in bed and answers questions appropriately Mentation: Patient is alert and oriented 4, Head: Normocephalic, small abrasion on the most superior aspect. Eyes: EOMI, pupils reactive to light Neck: Supple, nontender, midline Respiratory: Clear to auscultation bilaterally Cardiovascular: regular rate, no obvious murmurs Gastrointestinal: non-tender to palpation, bowel sounds heard. Neurological: Moves all extremities spontaneously Skin: No new skin lesions Results Result Diagram: 03/07/17 0703/07/17 0722 Results 24 hrs Laboratory Tests Test 03/06/17 19:48 03/07/17 07:22 Potassium Level 4.6 4.7 Magnesium Level 1.9 1.8 White Blood Count 8.8 Red Blood Count 4.38 L Hemoglobin 12.4 L Hematocrit 38.9 L Mean Corpuscular Volume 88.8 Mean Corpuscular Hemoglobin 28.3 L Mean Corpuscular Hemoglobin Concent 31.9 L Red Cell Distribution Width 13.6 Platelet Count 261 Mean Platelet Volume 10.9 H Neutrophils % 69.2 Lymphocytes % 21.5 Monocytes % 7.8 Eosinophils % 1.1 Basophils % 0.2 Nucleated Red Blood Cells % 0.0 Neutrophils # 6.1 Lymphocytes # 1.9 Monocytes # 0.7 Eosinophils # 0.1 Basophils # 0.0 Nucleated Red Blood Cells # 0.0 Sodium Level 137 Chloride Level 106 Carbon Dioxide Level 25 Anion Gap 11 Blood Urea Nitrogen 26 H Creatinine 1.53 H Glucose Level 78 Calcium Level 8.7 Phosphorus Level 3.2 Medications Medications Current Medications Ondansetron HCl (Zofran Inj) 4 mg Q6H PRN IV NAUSEA AND/OR VOMITING; Start at 01:30 Aspirin (Aspirin) 81 mg DAILY PO Last administered on 03/07/17t 09:10; Admin Dose 81 MG; Start 03/06/17 at 09:00 Nitroglycerin (Nitroglycerin (Sl Tab) 0.4 Mg) 1 tab Q5M PRN SL CHEST PAIN; Start 03/06/17 at 01:30 Acetaminophen (Tylenol Tab) 650 mg Q6H PRN PO PAIN LEVEL 1-3 OR FEVER; Start at 01:30 Morphine Sulfate (morphine) 2 mg Q4H PRN IV PAIN LEVEL 7-10; Start 03/06/17 at 01:30 Famotidine (Pepcid) 20 mg DAILY PO Last administered on 03/07/17 09:11; Admin Dose 20 MG; Start 03/06/17 at 09:00 Heparin Sodium (Porcine) (Heparin (5000 Units/0.5 ml)) 5,000 unit Q12 SC Last administered on 03/07/17 09:15; Admin Dose 5,000 UNIT; Start 03/06/17 at 09:00 Metoprolol Tartrate (Lopressor) 25 mg BID PO Last administered on 03/07/17 09: 11; Admin Dose 25 MG; Start 03/06/17 at 01:30 ELAINE DANIEL Mar 07, 2017 17:43
[2017-03-08] VITALS (12 sets, daily range): BP systolic 117–151; BP diastolic 85–98; PULSE 75–90; RESP 18–20
[2017-03-08 06:55] LABS: BASOPHILS % 0.5 % (0.0-2.0); EOSINOPHILS # 0.1 10^3/ul (0.0-0.5); EOSINOPHILS % 1.4 % (0.0-7.0); HEMATOCRIT 40.7 % (42.0-52.0); HEMOGLOBIN 13.2 g/dl (14.0-18.0); LYMPHOCYTES # 2.3 10^3/ul (0.8-2.9); LYMPHOCYTES % 26.4 % (15.0-51.0); MEAN CORPUSCULAR HEMOGLOBIN 28.6 pg (29.0-33.0); MEAN CORPUSCULAR HGB CONC 32.4 g/dl (32.0-37.0); MEAN CORPUSCULAR VOLUME 88.3 fl (82.0-101.0); MONOCYTE # 0.7 10^3/ul (0.3-0.9); MONOCYTES % 8.2 % (0.0-11.0); NEUTROPHIL # 5.4 10^3/ul (1.6-7.5); NEUTROPHILS % 63.1 % (39.0-77.0); PLATELET COUNT 276 10^3/UL (140-415); RED BLOOD COUNT 4.61 10^6/ul (4.70-6.10); RED CELL DISTRIBUTION WIDTH 13.5 % (11.5-14.5); WHITE BLOOD COUNT 8.5 10^3/ul (4.8-10.8)
[2017-03-08 07:33] LABS: CREATININE 1.25 mg/dl (0.61-1.24); MAGNESIUM 1.8 mg/dl (1.7-2.5); PHOSPHORUS 3.6 mg/dl (2.5-4.9); POTASSIUM 4.5 mmol/L (3.5-5.1)
[2017-03-08] MEDS: DRONEDARONE HYDROCHLORIDE 400 MG TAB PO SCH ×2 (09:01→16:50)
[2017-03-08] MEDS: FAMOTIDINE 20 MG TAB PO SCH (09:02)
[2017-03-08] MEDS: ASPIRIN 81 MG TAB PO SCH (09:02)
[2017-03-08] MEDS: METOPROLOL 25 MG TAB PO SCH ×2 (09:04→21:28)
[2017-03-08] MEDS: HEPARIN 5,000 UNIT/0.5 ML VIAL SC SCH ×2 (09:21→21:34)
--- NOTE | 2017-03-08 10:41 | PN ---
Date/Time of Note Date/Time of Note DATE: 03/08/17 TIME: 10:39 Assessment/Plan VTE Prophylaxis VTE Prophylaxis Intervention: heparin Lines/Catheters IV [facility]from [facility] Saline Lock Urinary Cath still in place: No Assessment/Plan Problems: (1) Altered level of consciousness Status: Acute Comment: He has a decreased mental status and gets worse as the day goes on which the other doctors have labeled as sundowning. He lives with his who is infirm. He reports that his son and his grandson help him however we have no way of reaching them. In addition to this his primary care physician is Dr. Piyush Quinones who is unavailable over the weekend. This means that our workup for this lung mass and the skeletal hyperostosis is somewhat abbreviated. Is not safe to discharge him home until we know more about his home environment. Case management has been consulted as has social work. (2) ARF (acute renal failure) Status: Acute Comment: This is resolving nicely. Qualifiers: Acute renal failure type: unspecified Qualified Code: N17.9 - Acute renal failure, unspecified acute renal failure type (3) Atrial fibrillation with RVR Status: Acute Comment: Rate controlled. He has normal thyroid function Subjective 24 Hr Interval Summary Free Text/Dictation Patient is charming and vibrant sitting in bed. Constitutional: no complaints Respiratory: no complaints Cardiovascular: no complaints Gastrointestinal: no complaints Neurologic: no complaints Exam/Review of Systems Vital Signs Vitals Vital Signs Date Time Temp Pulse Resp B/P Pulse Ox O2 Delivery O2 Flow Rate FiO2 03/08/17 08:00 82 03/08/17 07:15 97.8 20 151/94 94 03/07/17 20:36 21 03/05/17 23:25 Room Air Intake and Output 03/07/17 03/07/17 03/08/17 15:00 23:00 07:00 Intake Total 650 ml Output Total 500 ml Balance 150 ml Exam Oriented to person and place and vaguely time Constitutional: alert Neck: non-tender, supple Respiratory: clear to auscultation, normal air movement Cardiovascular: irregular rhythm, nl pulses Gastrointestinal: nl liver, spleen, non-tender, soft Neurological: UPHOLSTERY PARTS SORTER II-XII intact, confused (MMSE is 25), nl speech, nl strength Results Result Diagram: 03/08/1759 03/08/17 0559 Results 24 hrs Laboratory Tests Test 03/08/17 05:59 White Blood Count 8.5 Red Blood Count 4.61 L Hemoglobin 13.2 L Hematocrit 40.7 L Mean Corpuscular Volume 88.3 Mean Corpuscular Hemoglobin 28.6 L Mean Corpuscular Hemoglobin Concent 32.4 Red Cell Distribution Width 13.5 Platelet Count 276 Mean Platelet Volume 11.0 H Neutrophils % 63.1 Lymphocytes % 26.4 Monocytes % 8.2 Eosinophils % 1.4 Basophils % 0.5 Nucleated Red Blood Cells % 0.0 Neutrophils # 5.4 Lymphocytes # 2.3 Monocytes # 0.7 Eosinophils # 0.1 Basophils # 0.0 Nucleated Red Blood Cells # 0.0 Sodium Level 137 Potassium Level 4.5 Chloride Level 109 Carbon Dioxide Level 25 Anion Gap 8 Blood Urea Nitrogen 21 H Creatinine 1.25 H Glucose Level 72 Calcium Level 9.0 Phosphorus Level 3.6 Magnesium Level 1.8 Medications Medications Current Medications Ondansetron HCl (Zofran Inj) 4 mg Q6H PRN IV NAUSEA AND/OR VOMITING; Start at 01:30 Aspirin (Aspirin) 81 mg DAILY PO Last administered on 03/08/17 09:02; Admin Dose 81 MG; Start 03/06/17 at 09:00 Nitroglycerin (Nitroglycerin (Sl Tab) 0.4 Mg) 1 tab Q5M PRN SL CHEST PAIN; Start 03/06/17 at 01:30 Acetaminophen (Tylenol Tab) 650 mg Q6H PRN PO PAIN LEVEL 1-3 OR FEVER; Start at 01:30 Morphine Sulfate (morphine) 2 mg Q4H PRN IV PAIN LEVEL 7-10; Start 03/06/17 at 01:30 Famotidine (Pepcid) 20 mg DAILY PO Last administered on 03/08/17 09:02; Admin Dose 20 MG; Start 03/06/17 at 09:00 Heparin Sodium (Porcine) (Heparin (5000 Units/0.5 ml)) 5,000 unit Q12 SC Last administered on 03/08/17 09:21; Admin Dose 5,000 UNIT; Start 03/06/17 at 09:00 Metoprolol Tartrate (Lopressor) 25 mg BID PO Last administered on 03/08/17 09: 04; Admin Dose 25 MG; Start 03/06/17 at 01:30 MALACHI PATRICK MD Mar 08, 2017 10:41
--- NOTE | 2017-03-08 15:00 | PN ---
DATE: SUBJECTIVE DATA: The patient is alert and oriented. Feels well with no complaints. His atrial fibrillation is currently rate controlled. OBJECTIVE DATA: The patient is in no distress. Pulse 81, blood pressure 131/85, oxygen saturation 95 percent. LUNGS: Clear. HEART: There is an irregularly irregular rhythm. EXTREMITIES: Reveal no edema. MEDICATIONS: 1. Multaq. 2. Aspirin. 3. Morphine. ASSESSMENT: Atrial fibrillation, rate controlled. The patient is not on anticoagulations and the reason is unclear. However, I am uncomfortable starting this given his multiple medical issues and I would defer this to his primary physician who knows him better. He is on Multaq, which again can be stopped if he is in persistent atrial fibrillation, but I will defer this to the physician who follows him regularly. Dictated By: Carlos Blanton MD /[email or web address]/randi /Document#: [id number]
[2017-03-09] VITALS (12 sets, daily range): BP systolic 111–144; BP diastolic 72–98; PULSE 71–107; RESP 16–18
[2017-03-09 07:49] LABS: CREATININE 1.28 mg/dl (0.61-1.24); POTASSIUM 4.2 mmol/L (3.5-5.1)
[2017-03-09] MEDS: ASPIRIN 81 MG TAB PO SCH (08:57)
[2017-03-09] MEDS: FAMOTIDINE 20 MG TAB PO SCH (08:57)
[2017-03-09] MEDS: DRONEDARONE HYDROCHLORIDE 400 MG TAB PO SCH (08:57)
[2017-03-09] MEDS: METOPROLOL 25 MG TAB PO SCH ×2 (08:58→20:54)
[2017-03-09] MEDS: HEPARIN 5,000 UNIT/0.5 ML VIAL SC SCH ×2 (09:09→21:04)
--- NOTE | 2017-03-09 11:23 | PN ---
Date/Time of Note Date/Time of Note DATE: 03/09/17 TIME: 10:35 Assessment/Plan VTE Prophylaxis VTE Prophylaxis Intervention: heparin Lines/Catheters [facility] Saline Lock Urinary Cath still in place: No Assessment/Plan Chief Complaint/Hosp Course 86 yo male, brought to the ER by paramedics after he was found confused and walking around [employer]. NEURO: Acute encephalopathy: His presentation most likely represents possible onset of dementia. However we will also rule out other neurological vs infectious etiologies. Note that this gentleman had some Leukocytosis up on presentation. His Drug toxicology was negative. Plan: -neurology consult -I do not see a culture on this patient. Obtain urine/blood cultures. Also obtain [place] to rule out encephalitis-Defer neuro for LP consideration. -MRI brain/EEG -Supportive care CARDS: (1).A. fib with RVR, stable rate controlled: -Not a candidate for anticoag per cards 2/2fall risk. -On Multaq. (2).Hypertension.Stable -Continue metoprolol. PULM: (1). Lingula mass, concerning for neoplasm -Obtain tumor markers -Consult pulmonary and if indicated oncology eval in house. (2).Small left pleural effusion -monitor. RENAL: Acute kidney injury likley dehydration. Renal US with normal echogenicity bilaterally. Creatinine trended down nicely. 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 DVT prophylaxis: Heparin DISP: Not safe for home discharge. CM for SNF placement once medically stable. Fall precaution. Patient was seen in collaboration with . Problems: Subjective 24 Hr Interval Summary Free Text/Dictation Patient appears slightly confused. However, he is able to follow simple commands. Exam/Review of Systems Vital Signs Vitals Vital Signs Date Time Temp Pulse Resp B/P Pulse Ox O2 Delivery O2 Flow Rate FiO2 03/09/17 08:15 107 03/09/17 07:57 98.1 16 143/94 97 03/08/17 22:19 21 03/05/17 23:25 Room Air Intake and Output 03/08/17 03/08/17 03/09/17 15:00 23:00 07:00 Intake Total 1040 ml 250 ml Output Total 500 ml 1100 ml Balance 540 ml -850 ml Exam General: Elderly male, not in any acute distress . HEENT: 58-year-old male with a history of type 2 diabetes who presented to the ER complaining of fever, cough, diarrhea, total body ache and right ankle swelling.Normocephalic, Atraumatic, No laceration or hematoma; Eyes: PEERL, Conjunctiva clear, Anicteric sclera Neck: Supple without any lymphadenopathy, nontender, no JVD, no carotid bruits, trachea midline, no thyromegaly Cardiac: S1, S2 auscultated, regular rhythm and rate, no mumurs or gallop Pulmonary: Normal respiratory effort. Chest clear to auscultation bilaterally, no adventitious breath sounds GI: Abdomen normal to inspection. Soft, non tender, non- distended, no masses, no rebound tenderness or guarding. Bowel sounds active on all four quadrants Genitourinary: Deferred Extremities: No cyanosis, clubbing, or edema. Pulses [2+] bilaterally. Full ROM on all four extremities. No focal weakness appreciated. Neurologic: Alert and oriented 2. Disoriented to time and situation. Very forgetful. Skin: Generally, skin with dry flaky with rashes. Results Result Diagram: 03/08/17 0559 03/09/17 0633 Results 24 hrs Laboratory Tests Test 03/09/17 06:33 Sodium Level 137 Potassium Level 4.2 Chloride Level 106 Carbon Dioxide Level 27 Anion Gap 8 Blood Urea Nitrogen 20 Creatinine 1.28 H Glucose Level 77 Calcium Level 9.0 Medications Medications Current Medications Ondansetron HCl (Zofran Inj) 4 mg Q6H PRN IV NAUSEA AND/OR VOMITING; Start at 01:30 Aspirin (Aspirin) 81 mg DAILY PO Last administered on 03/09/17 08:57; Admin Dose 81 MG; Start 03/06/17 at 09:00 Nitroglycerin (Nitroglycerin (Sl Tab) 0.4 Mg) 1 tab Q5M PRN SL CHEST PAIN; Start 03/06/17 at 01:30 Acetaminophen (Tylenol Tab) 650 mg Q6H PRN PO PAIN LEVEL 1-3 OR FEVER; Start at 01:30 Morphine Sulfate (morphine) 2 mg Q4H PRN IV PAIN LEVEL 7-10; Start 03/06/17 at 01:30 Famotidine (Pepcid) 20 mg DAILY PO Last administered on 10/2/17at 08:57; Admin Dose 20 MG; Start 03/06/17 at 09:00 Heparin Sodium (Porcine) (Heparin (5000 Units/0.5 ml)) 5,000 unit Q12 SC Last administered on 03/09/17 09:09; Admin Dose 5,000 UNIT; Start 03/06/17 at 09:00 Metoprolol Tartrate (Lopressor) 25 mg BID PO Last administered on 03/09/17 08: 58; Admin Dose 25 MG; Start 03/06/17 at 01:30 ALEJANDRINA WRIGHT NP Mar 09, 2017 10:35
[2017-03-09 13:31] LABS: CARCINOEMBRYONIC ANTIGEN 2.9 ng/ml (0.0-5.0)
[2017-03-09 13:35] LABS: CANCER ANTIGEN 19-9 50.5 U/ml (0.0-37.0)
[2017-03-09 15:16] LABS: INR 1.2; PROTIME 15.3 Sec (12.2-14.2); PT RATIO 1.2
[2017-03-09 15:17] LABS: PARTIAL THROMBOPLASTIN TIME 37.6 Sec (25.0-35.0)
[2017-03-09 15:19] LABS: THROMBIN TIME 14.9 SEC (13.8-19.1)
--- NOTE | 2017-03-09 15:29 | RADRPT ---
PROCEDURE: MR Brain without contrast. CLINICAL INDICATION: Encephalopathy, neurologic deficit TECHNIQUE: An MRI of the brain was performed on a high-resolution MR scanner utilizing the followi ng sequences: Sagittal and axial T1 weighted, axial T2 weighted, axial FLAIR, coronal GRE, and axial diffusion weighted with ADC mapping. Images were reviewed high-resolution PACS workstation. No con trast was administered. COMPARISON: Correlation head CT 03/05/2017 FINDINGS: No acute parenchymal hemorrhage, mass effect, or midline shift. No evidence of recent infarct. Scatt ered subcortical, deep, and periventricular white matter T2-weighted/FLAIR hyperintensities are cons istent with chronic microvascular ischemic disease.Prominence of the cortical sulci and ventricles a re related to mild to moderate cerebral volume loss. No suspicious parenchymal hypointense signal abnormalities are seen on the GRE images to suggest the presence of blood degradation products. Normal flow voids are visible in the proximal intracranial arteries suggesting their patency. No significant opacification of the paranasal sinuses or mastoids. IMPRESSION: No acute intracranial abnormality or evidence of recent infarct. Moderate chronic microvascular disease. RPTAT: AA .Angel Luis Burris MD, MD Date Time Electronically viewed and signed by .Angel Luis Burris MD, on 03/09/2017 15:29 .T/
--- NOTE | 2017-03-09 15:58 | CONS ---
Date/Time of Note Date/Time of Note DATE: 03/09/17 TIME: 15:54 Assessment/Plan Assessment/Plan Additional Assessment/Plan Atrial fibrillation with rapid ventricular rates, improved Preserved ejection fraction Encephalopathy Abnormal renal function Lung mass -Patient remained in atrial fibrillation, will start beta-irma. Hold off on anticoagulant in the current time given patient with lung mass and possible procedures. The patient also found wandering in the street with encephalopathy , I am concerned the risks of anticoagulation might outweigh the benefits. Consultation Date/Type/Reason Admit Date/Time Mar 05, 2017 at 21:29 Initial Consult Date Type of Consultation: cv 24 HR Interval Summary Free Text/Dictation Denies palpitations, shortness of breath or chest pain Exam/Review of Systems Vital Signs Vitals Vital Signs Date Time Temp Pulse Resp B/P Pulse Ox O2 Delivery O2 Flow Rate FiO2 03/09/17 12:15 92 03/09/17 11:47 98.2 17 136/97 96 03/08/17 22:19 21 03/05/17 23:25 Room Air Intake and Output 03/08/17 03/08/17 03/09/17 15:00 23:00 07:00 Intake Total 1040 ml 250 ml Output Total 500 ml 1100 ml Balance 540 ml -850 ml Exam Following commands, no apparent distress Constitutional: alert Head: normocephalic Respiratory: other (Coarse breath sounds bilaterally, no wheezing) Cardiovascular: irregular rhythm, other (S1-S2 heard) Gastrointestinal: bowel sounds, non-tender, soft Extremities: edema (Trace) Results Result Diagram: 03/09/17 1437 03/09/17 0633 Results 24 hrs Laboratory Tests Test 03/09/17 06:33 03/09/17 11:19 03/09/17 14:37 Sodium Level 137 Potassium Level 4.2 Chloride Level 106 Carbon Dioxide Level 27 Anion Gap 8 Blood Urea Nitrogen 20 Creatinine 1.28 H Glucose Level 77 Calcium Level 9.0 Lactate Dehydrogenase 472 Alpha Fetoprotein 2.11 Carcinoembryonic Antigen 2.9 CA 19-9 Antigen 50.5 H Platelet Count 350 Prothrombin Time 15.3 H Prothrombin Time Ratio 1.2 INR International Normalized Ratio 1.20 Activated Partial Thromboplast Time 37.6 H Thrombin Time 14.9 Medications Medications Current Medications Ondansetron HCl (Zofran Inj) 4 mg Q6H PRN IV NAUSEA AND/OR VOMITING; Start at 01:30 Aspirin (Aspirin) 81 mg DAILY PO Last administered on 03/09/17 08:57; Admin Dose 81 MG; Start 03/06/17 at 09:00 Nitroglycerin (Nitroglycerin (Sl Tab) 0.4 Mg) 1 tab Q5M PRN SL CHEST PAIN; Start 03/06/17 at 01:30 Acetaminophen (Tylenol Tab) 650 mg Q6H PRN PO PAIN LEVEL 1-3 OR FEVER; Start at 01:30 Morphine Sulfate (morphine) 2 mg Q4H PRN IV PAIN LEVEL 7-10; Start 03/06/17 at 01:30 Famotidine (Pepcid) 20 mg DAILY PO Last administered on 03/09/17 08:57; Admin Dose 20 MG; Start 03/06/17 at 09:00 Heparin Sodium (Porcine) (Heparin (5000 Units/0.5 ml)) 5,000 unit Q12 SC Last administered on 03/09/17 09:09; Admin Dose 5,000 UNIT; Start 03/06/17 at 09:00 Metoprolol Tartrate (Lopressor) 25 mg BID PO Last administered on 03/09/17 08: 58; Admin Dose 25 MG; Start 03/06/17 at 01:30 Jay Shepard DO Mar 09, 2017 15:58
[2017-03-10] VITALS (20 sets, daily range): BP systolic 119–145; BP diastolic 76–101; PULSE 52–105; RESP 16–19
--- NOTE | 2017-03-10 04:24 | CONS ---
DATE OF ADMISSION: 03/05/2017 DATE OF CONSULTATION: 03/09/2017 REASON FOR CONSULTATION: Left-sided lung mass. HISTORY OF PRESENT ILLNESS: This is an 86-year-old gentleman originally brought in for altered mental status, atrial fibrillation with RVR. He had a workup which also consisted of CT of the chest, which was found to have significant left hilar mass. Upon discussion with the patient, he states he is a lifelong nonsmoker. No prior history of lung masses that he is aware of. No sick contacts. Denies any hemoptysis or hematemesis. 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 MEDICATION: Per chart. ALLERGIES: NONE. SOCIAL HISTORY: Nonsmoker. No alcohol. No history of drug use. FAMILY HISTORY: Noncontributory. REVIEW OF SYSTEMS: A 12-point review of systems negative other than that mentioned above. PHYSICAL EXAMINATION: GENERAL APPEARANCE: A thin gentleman, comfortable at rest, talking in complete sentences, appears awake, alert, and oriented. VITAL SIGNS: Temperature 98, pulse 92, blood pressure 136/97, O2 sat 96 percent on FiO2 of room air. NECK: Supple. No JVD or lymphadenopathy. CARDIAC: S1, S2. No added sounds or murmurs. CHEST: Diminished air entry bilaterally. ABDOMEN: Soft, nontender. No guarding or rebound. EXTREMITIES: No cyanosis, clubbing or edema. NEUROLOGICALLY: No focal deficits. LABORATORY: White count 8.5, hemoglobin 13.2, platelets 272. BUN 20, creatinine remains elevated. CA-19-[address] findings demonstrate left lingular mass and small left pleural effusion. CT brain showed no acute findings. CT C-spine was unremarkable. IMPRESSION: 1. Resolving encephalopathy, appears to be toxic metabolic. 2. Per chart, remote tobacco history with left lingular mass concerning for malignancy. PLAN: 1. The patient will require 1 bronchoscopy scheduled for tomorrow morning. 2. Continue neuro workup. 3. Treat for likely postobstructive pneumonia. 4. DVT and GI prophylaxis. Dictated By: Philip Amor MD /elva/amadeo /Document#: [id number]
--- NOTE | 2017-03-10 05:56 | NEURPT ---
DATE: 03/09/2017 REQUESTING PHYSICIAN: Dr. Jacques. CONDITIONS OF RECORDING: The patient is 86 years old with decreased mini-mental status and underlying dementia. EEG done using 10-20 international electrode system with photic stimulation. Bilateral occipital images reviewed showed delta and theta waves, 4-7 hertz, medium size, low amplitude, symmetric bilateral. Photic stimulation done did not elicit a drive. No epileptiform discharge or seizure activity is recorded. IMPRESSION: This is a normal electroencephalogram showing generalized slowing consistent with a history of underlying dementia, possible Alzheimer's disease. Follow-up EEG may be needed if clinically indicated. Again, thank you for asking me to see the patient with you. Dictated By: Phillip Dennis MD /elva/doguie /Document#: [id number]
--- NOTE | 2017-03-10 06:58 | CONS ---
DATE OF ADMISSION: 03/05/2017 DATE OF CONSULTATION: 03/09/2017 HISTORY OF PRESENT ILLNESS: The patient is an 86-year-old gentleman who was admitted on 03/05/2017 for alteration of mental status. According to history and physical examination note, the patient was found by police walking around [employer]. It seems like he was wandering around for a few hours. The patient was confused. He gave some history of falling down and hitting his head. On admission, AFib with rapid ventricular response and azotemia, BUN 18, creatinine 2.16. WBC count 14.5. The patient's encephalopathy has improved to some extent. He has a CT scan followed by MRI of the brain, both did not show any acute abnormalities. He was found to have a mass like density of 6 cm in size in the left lower lung with recommendation for chest CT from radiologist. CURRENT MEDICATIONS: 1. Namenda 5 mg daily. 2. Aspirin. 3. Pepcid. 4. Heparin for DVT prevention. 5. Different as needed medications. MEDICATIONS PRIOR TO ADMISSION: 1. Norvasc. 2. . 3. Losartan with hydrochlorothiazide. ALLERGIES: NONE. SOCIAL HISTORY: Denies alcohol, tobacco, or drug use. FAMILY HISTORY: Noncontributory. The patient stated that he used to live with his , but is currently in some sort of rehabilitation facility secondary to medical problems. So, he lately has been by himself. LABORATORY: His newer labs shows a WBC count 8.5, hemoglobin 13, hematocrit 40, BUN is 20, and creatinine 1.28 with hydration. Rest of basic metabolic panel within normal limits. Liver function tests essentially normal with exception of albumin 2.9. CK level was normal. Troponins negative. Cholesterol 106, LDL 61. Normal TSH. PT 15. PTT is 37. Urinalysis, 2+ urobilinogen on admission. Tox screen was negative. RPR was done also was negative. PHYSICAL EXAMINATION: VITAL SIGNS: Temperature 97.9, pulse 81, respirations 18, blood pressure 132/98. GENERAL: Not in acute distress. Lying in bed. HEENT: Normocephalic atraumatic head. Status post skin surgery in the left temporal area and also there is a dressing covering parietal scalp. NECK: Supple. No meningeal signs. LUNGS: Clear to auscultation bilaterally. CARDIAC: Irregular cardiac rhythm. ABDOMEN: Soft. EXTREMITIES: No cyanosis, clubbing, or edema. NEUROLOGIC: He is awake, alert, and oriented x1 only. He was able to state that he is in a hospital but could not name the hospital. He has fluent speech. Cranial nerve examination shows intact visual quintana bilaterally. Pupils reactive from 2-1 mm bilaterally. Extraocular movements intact without nystagmus. Symmetrical face. Preserved facial strength and sensation. Tongue was in midline. Palate elevates symmetrically. Motor strength examination seemed to be preserved in all extremities. Normal bulk, tone, and strength. Sensory examination, intact to light touch and pain. Deep tendon reflexes 1+ upper extremities, absent in lower extremities. Equivocal response to plantar stimulation bilaterally. Coordination preserved on [id number] testing. No dysmetria or tremor. Gait was not assessed. According to the patient, he has been able to ambulate without any assistive device. He denied any headache to me as well as any history of head trauma. IMPRESSION: Encephalopathy, plus or minus baseline dementia. Primary MD, Dr. Payan may be able to provide a better prior history of forgetfulness. He presented with acute renal insufficiency improving by now. Also rapid ventricular response secondary to arterial fibrillation. There is some mention in the chart that he fell. I guess that is the reason he is not on anticoagulation. Continue current treatment. Physical therapy and acute rehab may be reasonable for the patient. It is not clear if he has been taking Namenda given that no reconciliation was done, but it is okay to continue, usually we will increase Namenda weekly by 5 mg to a goal dose of 10 mg twice daily. I would not do any formal mini-mental status examination currently, given the possibility of acute encephalopathy overlying possible dementia, but that could be done on outpatient basis. I think it is reasonable to obtain EEG. Dictated By: Murray Ambrosio MD /elva/adele /Document#: [id number] DENISE
[2017-03-10] MEDS ORDERED: LIDOCAINE 2% (SDV) 5 ML INJ ONE (07:00)
[2017-03-10 08:32] LABS: CALCIUM 9.1 mg/dl (8.4-10.2); CREATININE 1.26 mg/dl (0.61-1.24); MAGNESIUM 1.9 mg/dl (1.7-2.5); POTASSIUM 4.4 mmol/L (3.5-5.1)
[2017-03-10] MEDS ORDERED: ETOMIDATE 20 MG INJ ONE (09:12)
[2017-03-10] MEDS ORDERED: ONDANSETRON 4 MG INJ ONE (09:12)
[2017-03-10] MEDS ORDERED: EPHEDrine SULFATE 50 MG/5 ML SYG ONE (09:12)
[2017-03-10] MEDS ORDERED: ROCURONIUM 50 MG INJ ONE (09:12)
[2017-03-10] MEDS ORDERED: PROPOFOL 20 ML ONE (09:12)
[2017-03-10] MEDS ORDERED: DEXAMETHASONE 4 MG/ML 1 ML INJ ONE ×2 (09:13→10:41)
[2017-03-10] MEDS ORDERED: PHENYLephrine (100 MCG/ML) 5ML SYG ONE (09:13)
[2017-03-10] MEDS ORDERED: LIDOCAINE 1% (MPF) 30 ML INJ ONE (09:28)
[2017-03-10] MEDS ORDERED: FENTAnyl 50 MCG/ML VIAL ONE (09:42)
[2017-03-10] MEDS ORDERED: LIDOCAINE 2 GM/D5W 500 ML ONE (09:43)
--- NOTE | 2017-03-10 09:44 | PN ---
Date/Time of Note Date/Time of Note DATE: 03/10/17 TIME: 09:44 Assessment/Plan VTE Prophylaxis VTE Prophylaxis Intervention: heparin Lines/Catheters IV [facility] Sal[facility] Urinary Cath still in place: No Assessment/Plan Chief Complaint/Hosp Course 86 yo male, brought to the ER by paramedics after he was found confused and walking around [employer]. NEURO: Acute encephalopathy with underlying dementia. Resolving. 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 Patient has been started on Namenda. -Supportive care, precaution. CARDS: (1).A. fib with RVR, stable rate controlled: -Not a candidate for anticoag per cards 2/2fall risk. -On Multaq. (2).Hypertension.Stable -Continue metoprolol. PULM: (1). 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 She with elevated CA 19. -Pulmonary evaluation greatly appreciated. Follow-up with bronchoscopy biopsy findings. (2).Small left pleural effusion -monitor. RENAL: Acute kidney injury likley dehydration. Renal US with normal echogenicity bilaterally. Creatinine trended down nicely. 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 -Follow-up with lung biopsy findings. INFECTIOUS: Gram-positive bacteremia. -Follow-up final cultures. Start ceftriaxone and vancomycin prophylactically. DVT prophylaxis: Heparin DISP: Not safe for home discharge. CM for SNF placement once medically stable. Fall precaution. Patient was seen in collaboration with . Problems: Subjective 24 Hr Interval Summary Free Text/Dictation Doing well. Patient is for bronchoscopy today. Exam/Review of Systems Vital Signs Vitals Vital Signs Date Time Temp Pulse Resp B/P Pulse Ox O2 Delivery O2 Flow Rate FiO2 03/10/17 08:16 97.5 81 18 134/95 96 03/10/17 03:06 21 Intake and Output 03/09/17 03/09/17 03/10/17 15:00 23:00 07:00 Intake Total 1500 ml 200 ml Output Total 1400 ml 700 ml Balance 100 ml -500 ml Exam General: Elderly male, not in any acute distress . HEENT: 58-year-old male with a history of type 2 diabetes who presented to the ER complaining of fever, cough, diarrhea, total body ache and right ankle swelling.Normocephalic, Atraumatic, No laceration or hematoma; Eyes: PEERL, Conjunctiva clear, Anicteric sclera Neck: Supple without any lymphadenopathy, nontender, no JVD, no carotid bruits, trachea midline, no thyromegaly Cardiac: S1, S2 auscultated, regular rhythm and rate, no mumurs or gallop Pulmonary: Normal respiratory effort. Chest clear to auscultation bilaterally, no adventitious breath sounds GI: Abdomen normal to inspection. Soft, non tender, non- distended, no masses, no rebound tenderness or guarding. Bowel sounds active on all four quadrants Genitourinary: Deferred Extremities: No cyanosis, clubbing, or edema. Pulses [2+] bilaterally. Full ROM on all four extremities. No focal weakness appreciated. Neurologic: Alert and oriented 2. Disoriented to time and situation. Very forgetful. Skin: Generally, skin with dry flaky with rashes. Results Result Diagram: 03/09/17 1437 03/10/17 0713 Results 24 hrs Laboratory Tests Test 03/09/17 11:19 03/09/17 14:37 03/10/17 07:13 Lactate Dehydrogenase 472 Alpha Fetoprotein 2.11 Carcinoembryonic Antigen 2.9 CA 19-9 Antigen 50.5 H Platelet Count 350 Prothrombin Time 15.3 H Prothrombin Time Ratio 1.2 INR International Normalized Ratio 1.20 Activated Partial Thromboplast Time 37.6 H Thrombin Time 14.9 Sodium Level 138 Potassium Level 4.4 Chloride Level 106 Carbon Dioxide Level 26 Anion Gap 10 Blood Urea Nitrogen 24 H Creatinine 1.26 H Glucose Level 75 Calcium Level 9.1 Magnesium Level 1.9 Medications Medications Current Medications Ondansetron HCl (Zofran Inj) 4 mg Q6H PRN IV NAUSEA AND/OR VOMITING; Start at 01:30 Aspirin (Aspirin) 81 mg DAILY PO Last administered on 03/09/17 08:57; Admin Dose 81 MG; Start 03/06/17 at 09:00 Nitroglycerin (Nitroglycerin (Sl Tab) 0.4 Mg) 1 tab Q5M PRN SL CHEST PAIN; Start 03/06/17 at 01:30 Acetaminophen (Tylenol Tab) 650 mg Q6H PRN PO PAIN LEVEL 1-3 OR FEVER; Start at 01:30 Morphine Sulfate (morphine) 2 mg Q4H PRN IV PAIN LEVEL 7-10; Start 03/06/17 at 01:30 Famotidine (Pepcid) 20 mg DAILY PO Last administered on 03/09/17 08:57; Admin Dose 20 MG; Start 03/06/17 at 09:00 Heparin Sodium (Porcine) (Heparin (5000 Units/0.5 ml)) 5,000 unit Q12 SC Last administered on 03/09/17 21:04; Admin Dose 5,000 UNIT; Start 03/06/17 at 09:00 Metoprolol Tartrate (Lopressor) 25 mg BID PO Last administered on 03/09/17 20: 54; Admin Dose 25 MG; Start 03/06/17 at 01:30 Memantine (Namenda) 5 mg DAILY PO ; Start 03/10/17 at 09:00 ALEJANDRINA WRIGHT NP Mar 10, 2017 09:44
[2017-03-10] MEDS ORDERED: VANCOMYCIN IV PER PHARMACY XX SCH (10:00)
[2017-03-10] MEDS ORDERED: ESMOLOL 10 ML ONE (10:13)
[2017-03-10] MEDS ORDERED: EPINEPHrine 1 MG/ML 30 ML INJ ONE (10:31)
[2017-03-10] MEDS ORDERED: SUGAMMADEX SODIUM 200 MG/2 ML VIAL IV ONE (10:38)
--- NOTE | 2017-03-10 11:03 | OPR ---
Date/Time of Note Date/Time of Note DATE: 03/10/17 TIME: 10:59 Operative Report Preoperative Diagnosis Left lingula mass Postoperative Diagnosis Left lingula mass Operation/Procedure Performed Bronchoscopy with biopsies. Surgeon see signature line Supply Cataloguer None Anesthesia Type: general Estimated Blood Loss: 0 - 10 ml's Transfusion none Specimen Biopsies of left lingula mass Grafts/Implants none Complications none Pt Condition Post Procedure: stable Disposition: PACU Procedure Description Procedure note for bronchoscopy Indication: Left lingula mass Description: Patient was intubated with mechanical ventilation blood pressure EKG and pulse oximetry were continuously monitored by anesthesia. A flexible fiberoptic bronchoscope was passed through the endotracheal tube to the riana which was noted to be sharp in appearance right lung was then entered and examined in detail. All orifices were noted to be patent with no endobronchial lesions. The mucosa was extremely vascular in appearance. The left lung was then entered. Left upper lobe and left lower lobe within normal limits with no endobronchial lesions and normal mucosa. The lumen. Endobronchial lesion was seen in the left lingula which was totally occluding the lumen. The mucosa of the lesion appeared somewhat friable. Biopsies of this lesion were performed 4. Patient had mild bleeding which eventually stopped following administration of epinephrine. Patient tolerated procedure without complication. He was taken to recovery room where he will be hopefully safely extubated and transferred back to telemetry floor. ADOLFO QUISPE MD, [facility] Mar 10, 2017 11:03
--- NOTE | 2017-03-10 11:06 | CONS ---
Date/Time of Note Date/Time of Note DATE: 03/10/17 TIME: 11:05 Consult Date/Type/Reason Admit Date/Time Mar 05, 2017 at 21:29 Initial Consult Date Type of Consultation: Pulmonary Subjective Patient awake alert comfortable this morning in preop. Understood need for procedure. Objective Vital Signs Date Time Temp Pulse Resp B/P Pulse Ox O2 Delivery O2 Flow Rate FiO2 03/10/17 08:16 97.5 81 18 134/95 96 03/10/17 03:06 21 Intake and Output 03/09/17 03/09/17 03/10/17 15:00 23:00 07:00 Intake Total 1500 ml 200 ml Output Total 1400 ml 700 ml Balance 100 ml -500 ml Exam GENERAL: Well-nourished well-developed elderly gentleman comfortable at rest VITAL SIGNS: per chart NECK: Supple. No JVD or lymphadenopathy. CARDIAC EXAM: S1, S2. No added sounds or murmurs. CHEST: clear bilaterally, No added sounds, rales or wheezes ABDOMEN: Soft, nontender. No guarding or rebound. EXTREMITIES: No cyanosis, clubbing or edema. NEUROLOGIC: Generalized weakness. No focal deficits. Results/Medications Result Diagram: 03/09/17 1437 03/10/17 0713 Results 24 hrs Laboratory Tests Test 03/09/17 11:19 03/09/17 14:37 03/10/17 07:13 Lactate Dehydrogenase 472 Alpha Fetoprotein 2.11 Carcinoembryonic Antigen 2.9 CA 19-9 Antigen 50.5 H Platelet Count 350 Prothrombin Time 15.3 H Prothrombin Time Ratio 1.2 INR International Normalized Ratio 1.20 Activated Partial Thromboplast Time 37.6 H Thrombin Time 14.9 Sodium Level 138 Potassium Level 4.4 Chloride Level 106 Carbon Dioxide Level 26 Anion Gap 10 Blood Urea Nitrogen 24 H Creatinine 1.26 H Glucose Level 75 Calcium Level 9.1 Magnesium Level 1.9 Medications Current Medications Ondansetron HCl (Zofran Inj) 4 mg Q6H PRN IV NAUSEA AND/OR VOMITING; Start at 01:30 Aspirin (Aspirin) 81 mg DAILY PO Last administered on 03/09/17t 08:57; Admin Dose 81 MG; Start 03/06/17 at 09:00 Nitroglycerin (Nitroglycerin (Sl Tab) 0.4 Mg) 1 tab Q5M PRN SL CHEST PAIN; Start 03/06/17 at 01:30 Acetaminophen (Tylenol Tab) 650 mg Q6H PRN PO PAIN LEVEL 1-3 OR FEVER; Start at 01:30 Morphine Sulfate (morphine) 2 mg Q4H PRN IV PAIN LEVEL 7-10; Start 03/06/17 at 01:30 Famotidine (Pepcid) 20 mg DAILY PO Last administered on 03/09/17 08:57; Admin Dose 20 MG; Start 03/06/17 at 09:00 Heparin Sodium (Porcine) (Heparin (5000 Units/0.5 ml)) 5,000 unit Q12 SC Last administered on 03/09/17 21:04; Admin Dose 5,000 UNIT; Start 03/06/17 at 09:00 Metoprolol Tartrate (Lopressor) 25 mg BID PO Last administered on 03/09/17 20: 54; Admin Dose 25 MG; Start 03/06/17 at 01:30 Memantine 5 mg 5 mg DAILY PO ; Start 03/10/17 at 09:00 Ceftriaxone Sodium 50 ml @ 100 mls/hr Q24H IVPB ; Start 03/10/17 at 11:00 Vancomycin HCl 1.5 gm/Sodium Chloride 250 ml @ 83.333 mls/ hr ONCE ONCE IVPB ; Start 03/10/17 at 12:00; Stop 03/10/17 at 14:59 Vancomycin HCl (Vancocin) 250 ml @ 125 mls/hr Q24H IVPB ; Start 03/11/17 at 12: 00 Assessment/Plan Chief Complaint/Hosp Course Assessment 1. Encephalopathy appears to be slowly resolving. Still having episodes of sundowning per staff. 2. Left lingular mass. Status post bronchoscopy today. Results will take 2-3 working days. Would recommend keeping patient in the hospital until we have a result and plan of care. 3. Will require PET CT and PFTs. Potentially this is a resectable lesion. Plan 1. Continue neuro recommendations 2. Await lung biopsy results 3. Outpatient PET CT and PFTs We will discuss with thoracic surgery. Problems: ADOLFO QUISPE MD, [facility] Mar 10, 2017 11:06
[2017-03-10] MEDS ORDERED: KETOROLAC 30 MG INJ IV PRN (11:30)
[2017-03-10] MEDS ORDERED: FENTAnyl 50 MCG/ML VIAL IV PRN (11:30)
[2017-03-10] MEDS ORDERED: HYDROmorphONE (0.2 MG/ML) 10ML SYG IV PRN (11:30)
[2017-03-10] MEDS ORDERED: ALBUTEROL 0.083% (NEB) 2.5 MG/3 ML AMP HHN PRN (11:30)
[2017-03-10] MEDS ORDERED: ONDANSETRON 4 MG INJ IV PRN (11:30)
[2017-03-10] MEDS ORDERED: VANCOMYCIN 1.5 GM in SOD CHLORIDE 0.9% 250 ML IVPB ONE (12:00)
[2017-03-10] MEDS: CEFTRIAXONE 1 GM/50 ML (PMX) 50 ML IVPB SCH (12:19)
[2017-03-10] MEDS: ASPIRIN 81 MG TAB PO SCH (12:20)
[2017-03-10] MEDS: MEMANTINE 5 MG TAB PO SCH (12:20)
[2017-03-10] MEDS: FAMOTIDINE 20 MG TAB PO SCH (12:20)
[2017-03-10] MEDS: METOPROLOL 25 MG TAB PO SCH ×2 (12:22→20:42)
[2017-03-10] MEDS: HEPARIN 5,000 UNIT/0.5 ML VIAL SC SCH ×2 (12:27→20:40)
--- NOTE | 2017-03-10 17:03 | CONS ---
Date/Time of Note Date/Time of Note DATE: 03/10/17 TIME: 17:01 Assessment/Plan Assessment/Plan Additional Assessment/Plan Atrial fibrillation with rapid ventricular rates, improved Preserved ejection fraction Encephalopathy Abnormal renal function Lung mass -Patient remains in atrial fibrillation, will start beta-irma. Hold off on anticoagulant in the current time given patient with lung mass and possible procedures. The patient also found wandering in the street with encephalopathy , I am concerned the risks of anticoagulation might outweigh the benefits. Consultation Date/Type/Reason Admit Date/Time Mar 05, 2017 at 21:29 Type of Consultation: cv 24 HR Interval Summary Free Text/Dictation Denies palpitations, shortness of breath or chest pain Exam/Review of Systems Vital Signs Vitals Vital Signs Date Time Temp Pulse Resp B/P Pulse Ox O2 Delivery O2 Flow Rate FiO2 03/10/17 12:18 87 03/10/17 12:04 97.8 18 142/99 95 03/10/17 11:30 Room Air 03/10/17 11:15 2.0 03/10/17 03:06 21 Intake and Output 03/09/17 03/09/17 03/10/17 15:00 23:00 07:00 Intake Total 1500 ml 200 ml Output Total 1400 ml 700 ml Balance 100 ml -500 ml Exam No apparent distress Constitutional: alert, oriented Head: normocephalic Respiratory: other (Coarse breath sounds bilaterally, no wheezing) Cardiovascular: irregular rhythm, other (S1-S2 heard) Gastrointestinal: bowel sounds, non-tender, soft Extremities: other (No edema) Results Result Diagram: 03/09/17 1437 03/10/17 0713 Results 24 hrs Laboratory Tests Test 03/10/17 07:13 Sodium Level 138 Potassium Level 4.4 Chloride Level 106 Carbon Dioxide Level 26 Anion Gap 10 Blood Urea Nitrogen 24 H Creatinine 1.26 H Glucose Level 75 Calcium Level 9.1 Magnesium Level 1.9 Medications Medications Current Medications Ondansetron HCl (Zofran Inj) 4 mg Q6H PRN IV NAUSEA AND/OR VOMITING; Start at 01:30 Aspirin (Aspirin) 81 mg DAILY PO Last administered on 03/10/17t 12:20; Admin Dose 81 MG; Start 03/06/17 at 09:00 Nitroglycerin (Nitroglycerin (Sl Tab) 0.4 Mg) 1 tab Q5M PRN SL CHEST PAIN; Start 03/06/17 at 01:30 Acetaminophen (Tylenol Tab) 650 mg Q6H PRN PO PAIN LEVEL 1-3 OR FEVER; Start at 01:30 Morphine Sulfate (morphine) 2 mg Q4H PRN IV PAIN LEVEL 7-10; Start 03/06/17 at 01:30 Famotidine (Pepcid) 20 mg DAILY PO Last administered on 03/10/17 12:20; Admin Dose 20 MG; Start 03/06/17 at 09:00 Heparin Sodium (Porcine) (Heparin (5000 Units/0.5 ml)) 5,000 unit Q12 SC Last administered on 03/10/17 12:27; Admin Dose 5,000 UNIT; Start 03/06/17 at 09:00 Metoprolol Tartrate (Lopressor) 25 mg BID PO Last administered on 03/10/17 12: 22; Admin Dose 25 MG; Start 03/06/17 at 01:30 Memantine 5 mg 5 mg DAILY PO Last administered on 03/10/17 12:20; Admin Dose 5 MG; Start 03/10/17 at 09:00 Ceftriaxone Sodium 50 ml @ 100 mls/hr Q24H IVPB Last administered on 12:19; Admin Dose 100 MLS/HR; Start 03/10/17 at 11:00 Vancomycin HCl (Vancocin) 250 ml @ 125 mls/hr Q24H IVPB ; Start 03/11/17 at 12: 00 Jay Shepard DO Mar 10, 2017 17:03
[2017-03-11] VITALS (11 sets, daily range): BP systolic 114–149; BP diastolic 65–95; PULSE 84–98; RESP 19–20
--- NOTE | 2017-03-11 07:12 | CONS ---
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 The patient admitted with decreased mini-mental status, and I got a call about him today for more evaluation. MRI done for him for his brain shows moderate chronic microvascular disease. No acute intracranial abnormality or recent infarction. MEDICATIONS: The patient's current medications include: 1. Aspirin 81 mg once a day. 2. Pepcid 20 mg once a day. 3. Zofran 4 mg every 6 hours as needed. 4. Tylenol 650 every 6 hours as needed. 5. Morphine 2 mg every 4 hours as needed. 6. Albuterol inhaler as needed. 7. Metoprolol 25 mg twice a day. PHYSICAL EXAMINATION: The patient is alert, awake, following simple commands. Looks confused. Difficult to follow 2nd and 3rd step commands. HEART: Regular rate and rhythm. LUNGS: Equal breath sounds. ABDOMEN: Soft. B[employer] SH[employer] TECHNICIAN: Cranial nerve II: Pupils equal on both sides, reactive to light. Cranial nerves III, IV and : Extraocular muscles intact. Cranial nerve V: Equal sensation to face. Cranial nerve VII: Symmetrical face. Cranial nerve VIII: Decreased hearing bilaterally. Cranial nerves IX and X: Elevates palate. Cranial nerve XI: Elevates shoulder 5/5. Cranial nerve XII: With straight tongue. Motor exam: Decreased . Sensation decreased for glove and sock area for light touch and temperature. Coordination: [id number] test intact. HEART: Regular rate and rhythm. LUNGS: Equal breath sounds. ABDOMEN: Soft, nondistended, no tenderness. ASSESSMENT AND PLAN: 1. The patient is 86 years old with underlying decreased mini- mental status, possibility of underlying Alzheimer's disease. Follow up the patient with mini-mental status examination for more evaluation and treatment. I am going to start him on Namenda 5 mg once a day from now. 2. History of atrial fibrillation with rapid response. The patient was given Cardizem today with improvement. The patient is off anticoagulation because of possible procedure for his lung mass. Patient has been 3. on aspirin 81 mg once a day for stroke prophylaxis for now. 4. EEG done, which showed generalized slowing consistent with a history of underlying dementia, possible Alzheimer. We will follow up the patient with Alzheimer study as an outpatient. Dictated By: Phillip Dennis MD /elva/randi /Document#: [id number]
[2017-03-11 07:22] LABS: BASOPHILS % 0.1 % (0.0-2.0); HEMATOCRIT 41.3 % (42.0-52.0); HEMOGLOBIN 13.5 g/dl (14.0-18.0); LYMPHOCYTES # 1.2 10^3/ul (0.8-2.9); LYMPHOCYTES % 8.8 % (15.0-51.0); MEAN CORPUSCULAR HEMOGLOBIN 29.1 pg (29.0-33.0); MEAN CORPUSCULAR HGB CONC 32.7 g/dl (32.0-37.0); MEAN PLATELET VOLUME 11.2 fl (7.4-10.4); MONOCYTE # 0.7 10^3/ul (0.3-0.9); MONOCYTES % 5.2 % (0.0-11.0); NEUTROPHIL # 11.4 10^3/ul (1.6-7.5); NEUTROPHILS % 85.3 % (39.0-77.0); PLATELET COUNT 304 10^3/UL (140-415); RED BLOOD COUNT 4.64 10^6/ul (4.70-6.10); RED CELL DISTRIBUTION WIDTH 13.2 % (11.5-14.5); WHITE BLOOD COUNT 13.4 10^3/ul (4.8-10.8)
[2017-03-11 08:00] LABS: CALCIUM 9.1 mg/dl (8.4-10.2); CREATININE 1.24 mg/dl (0.61-1.24)
[2017-03-11] MEDS: ASPIRIN 81 MG TAB PO SCH (09:06)
[2017-03-11] MEDS: MEMANTINE 5 MG TAB PO SCH (09:06)
[2017-03-11] MEDS: FAMOTIDINE 20 MG TAB PO SCH (09:06)
[2017-03-11] MEDS: METOPROLOL 25 MG TAB PO SCH ×2 (09:08→20:20)
[2017-03-11] MEDS: HEPARIN 5,000 UNIT/0.5 ML VIAL SC SCH ×2 (09:10→20:22)
--- NOTE | 2017-03-11 10:27 | PN ---
Date/Time of Note Date/Time of Note DATE: 03/11/17 TIME: 10:19 Assessment/Plan VTE Prophylaxis VTE Prophylaxis Intervention: heparin Lines/Catheters IV [facility] (from [facility]): Peripheral IV Urinary Cath still in place: No Assessment/Plan Chief Complaint/Hosp Course 86 yo male, brought to the ER by paramedics after he was found confused and walking around [employer]. NEURO: Acute encephalopathy with underlying possible Alzheimer type dementia. Patient back to baseline. -neurology eval appreciated and on Namenda. -Supportive care, Fall precaution. CARDS: (1).A. fib with RVR, stable rate controlled: -Not a candidate for anticoag per cards 2/2 fall risk. -On Multaq. (2).Hypertension.Stable -Continue metoprolol. PULM: (1). 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 Elevated CA 19. -Pulmonary evaluation greatly appreciated. Status postbronchoscopy. F/u biopsy findings. (2).Small left pleural effusion.Stable. -monitor. RENAL: Acute kidney injury likley dehydration. Resolved. Renal US with normal echogenicity bilaterally. 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 -Follow-up with lung biopsy findings. INFECTIOUS: (1)Gram-positive bacteremia in 1 set. Possibly contamination.UCS with possible contamination. -Follow-up final cultures. Continue ceftriaxone and vancomycin prophylactically. (2) leukocytosis, likely reactive vs secondary to #1 -Continue abx.F/u final CS. DVT prophylaxis: Heparin DISP: Not safe for home discharge. CM for SNF placement once medically stable. F/u with biopsy findings. Continue Fall precaution. Patient was seen in collaboration with . Problems: Subjective 24 Hr Interval Summary Free Text/Dictation Patient walking in room.Alert and oriented. Exam/Review of Systems Vital Signs Vitals Vital Signs Date Time Temp Pulse Resp B/P Pulse Ox O2 Delivery O2 Flow Rate FiO2 03/11/17 08:00 91 03/11/17 07:52 97.7 20 149/88 98 03/10/17 11:30 Room Air 03/10/17 11:15 2.0 03/10/17 03:06 21 Intake and Output 03/10/17 03/10/17 03/11/17 15:00 23:00 07:00 Intake Total 500 ml 640 ml 400 ml Output Total 10 ml 650 ml 800 ml Balance 490 ml -10 ml -400 ml Exam General: Elderly male, not in any acute distress . HEENT: 58-year-old male with a history of type 2 diabetes who presented to the ER complaining of fever, cough, diarrhea, total body ache and right ankle swelling.Normocephalic, Atraumatic, No laceration or hematoma; Eyes: PEERL, Conjunctiva clear, Anicteric sclera Neck: Supple without any lymphadenopathy, nontender, no JVD, no carotid bruits, trachea midline, no thyromegaly Cardiac: S1, S2 auscultated, regular rhythm and rate, no mumurs or gallop Pulmonary: Normal respiratory effort. Chest clear to auscultation bilaterally, no adventitious breath sounds GI: Abdomen normal to inspection. Soft, non tender, non- distended, no masses, no rebound tenderness or guarding. Bowel sounds active on all four quadrants Genitourinary: Deferred Extremities: No cyanosis, clubbing, or edema. Pulses [2+] bilaterally. Full ROM on all four extremities. No focal weakness appreciated. Neurologic: Alert and oriented 2. Disoriented to time and situation. Very forgetful. Skin: Generally, skin with dry flaky with rashes. Results Result Diagram: 03/11/17 0654 03/11/17 0654 Results 24 hrs Laboratory Tests Test 03/11/17 06:54 White Blood Count 13.4 #H Red Blood Count 4.64 L Hemoglobin 13.5 L Hematocrit 41.3 L Mean Corpuscular Volume 89.0 Mean Corpuscular Hemoglobin 29.1 Mean Corpuscular Hemoglobin Concent 32.7 Red Cell Distribution Width 13.2 Platelet Count 304 Mean Platelet Volume 11.2 H Neutrophils % 85.3 H Lymphocytes % 8.8 L Monocytes % 5.2 Eosinophils % 0.0 Basophils % 0.1 Nucleated Red Blood Cells % 0.0 Neutrophils # 11.4 H Lymphocytes # 1.2 Monocytes # 0.7 Eosinophils # 0.0 Basophils # 0.0 Nucleated Red Blood Cells # 0.0 Sodium Level 139 Potassium Level 5.0 Chloride Level 107 Carbon Dioxide Level 26 Anion Gap 11 Blood Urea Nitrogen 27 H Creatinine 1.24 Glucose Level 104 Calcium Level 9.1 Medications Medications Current Medications Ondansetron HCl (Zofran Inj) 4 mg Q6H PRN IV NAUSEA AND/OR VOMITING; Start at 01:30 Aspirin (Aspirin) 81 mg DAILY PO Last administered on 03/11/17 09:06; Admin Dose 81 MG; Start 03/06/17 at 09:00 Nitroglycerin (Nitroglycerin (Sl Tab) 0.4 Mg) 1 tab Q5M PRN SL CHEST PAIN; Start 03/06/17 at 01:30 Acetaminophen (Tylenol Tab) 650 mg Q6H PRN PO PAIN LEVEL 1-3 OR FEVER; Start at 01:30 Morphine Sulfate (morphine) 2 mg Q4H PRN IV PAIN LEVEL 7-10; Start 03/06/17 at 01:30 Famotidine (Pepcid) 20 mg DAILY PO Last administered on 03/11/17 09:06; Admin Dose 20 MG; Start 03/06/17 at 09:00 Heparin Sodium (Porcine) (Heparin (5000 Units/0.5 ml)) 5,000 unit Q12 SC Last administered on 03/11/17 09:10; Admin Dose 5,000 UNIT; Start 03/06/17 at 09:00 Metoprolol Tartrate (Lopressor) 25 mg BID PO Last administered on 03/11/17 09: 08; Admin Dose 25 MG; Start 03/06/17 at 01:30 Memantine 5 mg 5 mg DAILY PO Last administered on 03/11/17 09:06; Admin Dose 5 MG; Start 03/10/17 at 09:00 Ceftriaxone Sodium 50 ml @ 100 mls/hr Q24H IVPB Last administered on 12:19; Admin Dose 100 MLS/HR; Start 03/10/17 at 11:00 Vancomycin HCl (Vancocin) 250 ml @ 125 mls/hr Q24H IVPB ; Start 03/11/17 at 12: 00 ALEJANDRINA WRIGHT NP Mar 11, 2017 10:27
[2017-03-11] MEDS: CEFTRIAXONE 1 GM/50 ML (PMX) 50 ML IVPB SCH (11:18)
--- NOTE | 2017-03-11 11:40 | CONS ---
Date/Time of Note Date/Time of Note DATE: 03/11/17 TIME: 11:39 Assessment/Plan Assessment/Plan Additional Assessment/Plan Atrial fibrillation with rapid ventricular rates, improved Preserved ejection fraction Encephalopathy Abnormal renal function Lung mass -Patient remains in atrial fibrillation. In discussion with family yesterday, patient has not seen a physician in quite some time and noncompliant with medications. Hold off on anticoagulant in the current time given patient with lung mass and possible procedures. The patient also found wandering in the street with encephalopathy, I am concerned the risks of anticoagulation might outweigh the benefits. Consultation Date/Type/Reason Admit Date/Time Mar 05, 2017 at 21:29 Type of Consultation: cv 24 HR Interval Summary Free Text/Dictation Denies palpitations, dizziness or shortness of breath. Exam/Review of Systems Vital Signs Vitals Vital Signs Date Time Temp Pulse Resp B/P Pulse Ox O2 Delivery O2 Flow Rate FiO2 03/11/17 08:00 91 03/11/17 07:52 97.7 20 149/88 98 03/10/17 11:30 Room Air 03/10/17 11:15 2.0 03/10/17 03:06 21 Intake and Output 03/10/17 03/10/17 03/11/17 15:00 23:00 07:00 Intake Total 500 ml 640 ml 400 ml Output Total 10 ml 650 ml 800 ml Balance 490 ml -10 ml -400 ml Exam No apparent distress, following commands Constitutional: alert, oriented Head: normocephalic Respiratory: other (Coarse breath sounds bilaterally, no wheezing) Cardiovascular: irregular rhythm, other (S1-S2 heard) Gastrointestinal: bowel sounds, non-tender, soft Extremities: other (No significant edema) Results Result Diagram: 03/11/17 0654 03/11/17 0654 Results 24 hrs Laboratory Tests Test 03/11/17 06:54 White Blood Count 13.4 #H Red Blood Count 4.64 L Hemoglobin 13.5 L Hematocrit 41.3 L Mean Corpuscular Volume 89.0 Mean Corpuscular Hemoglobin 29.1 Mean Corpuscular Hemoglobin Concent 32.7 Red Cell Distribution Width 13.2 Platelet Count 304 Mean Platelet Volume 11.2 H Neutrophils % 85.3 H Lymphocytes % 8.8 L Monocytes % 5.2 Eosinophils % 0.0 Basophils % 0.1 Nucleated Red Blood Cells % 0.0 Neutrophils # 11.4 H Lymphocytes # 1.2 Monocytes # 0.7 Eosinophils # 0.0 Basophils # 0.0 Nucleated Red Blood Cells # 0.0 Sodium Level 139 Potassium Level 5.0 Chloride Level 107 Carbon Dioxide Level 26 Anion Gap 11 Blood Urea Nitrogen 27 H Creatinine 1.24 Glucose Level 104 Calcium Level 9.1 Medications Medications Current Medications Ondansetron HCl (Zofran Inj) 4 mg Q6H PRN IV NAUSEA AND/OR VOMITING; Start at 01:30 Aspirin (Aspirin) 81 mg DAILY PO Last administered on 03/11/17 09:06; Admin Dose 81 MG; Start 03/06/17 at 09:00 Nitroglycerin (Nitroglycerin (Sl Tab) 0.4 Mg) 1 tab Q5M PRN SL CHEST PAIN; Start 03/06/17 at 01:30 Acetaminophen (Tylenol Tab) 650 mg Q6H PRN PO PAIN LEVEL 1-3 OR FEVER; Start at 01:30 Morphine Sulfate (morphine) 2 mg Q4H PRN IV PAIN LEVEL 7-10; Start 03/06/17 at 01:30 Famotidine (Pepcid) 20 mg DAILY PO Last administered on 03/11/17 09:06; Admin Dose 20 MG; Start 03/06/17 at 09:00 Heparin Sodium (Porcine) (Heparin (5000 Units/0.5 ml)) 5,000 unit Q12 SC Last administered on 03/11/17 09:10; Admin Dose 5,000 UNIT; Start 03/06/17 at 09:00 Metoprolol Tartrate (Lopressor) 25 mg BID PO Last administered on 03/11/17 09: 08; Admin Dose 25 MG; Start 03/06/17 at 01:30 Memantine 5 mg 5 mg DAILY PO Last administered on 03/11/17 09:06; Admin Dose 5 MG; Start 03/10/17 at 09:00 Ceftriaxone Sodium 50 ml @ 100 mls/hr Q24H IVPB Last administered on 11:18; Admin Dose 100 MLS/HR; Start 03/10/17 at 11:00 Vancomycin HCl (Vancocin) 250 ml @ 125 mls/hr Q24H IVPB ; Start 03/11/17 at 12: 00 Jay Shepard DO Mar 11, 2017 11:40
[2017-03-11] MEDS ORDERED: VANCOMYCIN 1 GM in NS 250 ML IVPB SCH (12:00)
--- NOTE | 2017-03-11 12:22 | CONS ---
Date/Time of Note Date/Time of Note DATE: 03/11/17 TIME: 12:21 Consult Date/Type/Reason Admit Date/Time Mar 05, 2017 at 21:29 Type of Consultation: Pulmonary Subjective Patient stable this morning. Awake alert comfortable. Denies any shortness of breath. No hemoptysis. Objective Vital Signs Date Time Temp Pulse Resp B/P Pulse Ox O2 Delivery O2 Flow Rate FiO2 03/11/17 11:48 97.5 84 20 121/76 98 03/10/17 11:30 Room Air 03/10/17 11:15 2.0 03/10/17 03:06 21 Intake and Output 03/10/17 03/10/17 03/11/17 15:00 23:00 07:00 Intake Total 500 ml 640 ml 400 ml Output Total 10 ml 650 ml 800 ml Balance 490 ml -10 ml -400 ml Exam GENERAL: Elderly gentleman comfortable at rest no acute distress VITAL SIGNS: per chart NECK: Supple. No JVD or lymphadenopathy. CARDIAC EXAM: S1, S2. No added sounds or murmurs. CHEST: clear bilaterally, No added sounds, rales or wheezes ABDOMEN: Soft, nontender. No guarding or rebound. EXTREMITIES: No cyanosis, clubbing or edema. NEUROLOGIC: Generalized weakness. No focal deficits. Results/Medications Result Diagram: 03/11/17 0654 03/11/17 0654 Results 24 hrs Laboratory Tests Test 03/11/17 06:54 White Blood Count 13.4 #H Red Blood Count 4.64 L Hemoglobin 13.5 L Hematocrit 41.3 L Mean Corpuscular Volume 89.0 Mean Corpuscular Hemoglobin 29.1 Mean Corpuscular Hemoglobin Concent 32.7 Red Cell Distribution Width 13.2 Platelet Count 304 Mean Platelet Volume 11.2 H Neutrophils % 85.3 H Lymphocytes % 8.8 L Monocytes % 5.2 Eosinophils % 0.0 Basophils % 0.1 Nucleated Red Blood Cells % 0.0 Neutrophils # 11.4 H Lymphocytes # 1.2 Monocytes # 0.7 Eosinophils # 0.0 Basophils # 0.0 Nucleated Red Blood Cells # 0.0 Sodium Level 139 Potassium Level 5.0 Chloride Level 107 Carbon Dioxide Level 26 Anion Gap 11 Blood Urea Nitrogen 27 H Creatinine 1.24 Glucose Level 104 Calcium Level 9.1 Medications Current Medications Ondansetron HCl (Zofran Inj) 4 mg Q6H PRN IV NAUSEA AND/OR VOMITING; Start at 01:30 Aspirin (Aspirin) 81 mg DAILY PO Last administered on 03/11/17 09:06; Admin Dose 81 MG; Start 03/06/17 at 09:00 Nitroglycerin (Nitroglycerin (Sl Tab) 0.4 Mg) 1 tab Q5M PRN SL CHEST PAIN; Start 03/06/17 at 01:30 Acetaminophen (Tylenol Tab) 650 mg Q6H PRN PO PAIN LEVEL 1-3 OR FEVER; Start at 01:30 Morphine Sulfate (morphine) 2 mg Q4H PRN IV PAIN LEVEL 7-10; Start 03/06/17 at 01:30 Famotidine (Pepcid) 20 mg DAILY PO Last administered on 03/11/17 09:06; Admin Dose 20 MG; Start 03/06/17 at 09:00 Heparin Sodium (Porcine) (Heparin (5000 Units/0.5 ml)) 5,000 unit Q12 SC Last administered on 03/11/17 09:10; Admin Dose 5,000 UNIT; Start 03/06/17 at 09:00 Metoprolol Tartrate (Lopressor) 25 mg BID PO Last administered on 03/11/17 09: 08; Admin Dose 25 MG; Start 03/06/17 at 01:30 Memantine 5 mg 5 mg DAILY PO Last administered on 03/11/17 09:06; Admin Dose 5 MG; Start 03/10/17 at 09:00 Ceftriaxone Sodium 50 ml @ 100 mls/hr Q24H IVPB Last administered on 11:18; Admin Dose 100 MLS/HR; Start 03/10/17 at 11:00 Vancomycin HCl (Vancocin) 250 ml @ 125 mls/hr Q24H IVPB ; Start 03/11/17 at 12: 00 Assessment/Plan Chief Complaint/Hosp Course Assessment 1. Encephalopathy appears to be slowly resolving. Still having episodes of sundowning per staff. 2. Left lingular mass. Status post bronchoscopy today. Results will take 2-3 working days. Would recommend keeping patient in the hospital until we have a result and plan of care. 3. Will require PET CT and PFTs. Potentially this is a resectable lesion. Plan 1. Continue neuro recommendations 2. Await lung biopsy results 3. Outpatient PET CT. will order preop PFTs. Problems: ADOLFO QUISPE MD, [facility] Mar 11, 2017 12:22
[2017-03-11] MEDS ORDERED: HALOPERIDOL 5 MG INJ IM ONE (21:19)
[2017-03-11] MEDS ORDERED: LORAZEPAM 2 MG INJ IV PRN (21:30)
[2017-03-12] VITALS (12 sets, daily range): BP systolic 118–152; BP diastolic 70–90; PULSE 78–105; RESP 16–20
[2017-03-12 07:24] LABS: BASOPHIL # 0.1 10^3/ul (0.0-0.1); BASOPHILS % 0.5 % (0.0-2.0); EOSINOPHILS # 0.1 10^3/ul (0.0-0.5); EOSINOPHILS % 1.1 % (0.0-7.0); HEMATOCRIT 43.1 % (42.0-52.0); HEMOGLOBIN 13.6 g/dl (14.0-18.0); LYMPHOCYTES # 3.2 10^3/ul (0.8-2.9); LYMPHOCYTES % 26.2 % (15.0-51.0); MEAN CORPUSCULAR HEMOGLOBIN 28.2 pg (29.0-33.0); MEAN CORPUSCULAR HGB CONC 31.6 g/dl (32.0-37.0); MEAN CORPUSCULAR VOLUME 89.4 fl (82.0-101.0); MEAN PLATELET VOLUME 10.8 fl (7.4-10.4); MONOCYTES % 8.1 % (0.0-11.0); NEUTROPHIL # 7.8 10^3/ul (1.6-7.5); NEUTROPHILS % 63.5 % (39.0-77.0); PLATELET COUNT 299 10^3/UL (140-415); RED BLOOD COUNT 4.82 10^6/ul (4.70-6.10); RED CELL DISTRIBUTION WIDTH 13.8 % (11.5-14.5); WHITE BLOOD COUNT 12.2 10^3/ul (4.8-10.8)
[2017-03-12 08:09] LABS: CALCIUM 9.1 mg/dl (8.4-10.2); CREATININE 1.33 mg/dl (0.61-1.24); POTASSIUM 4.5 mmol/L (3.5-5.1)
--- NOTE | 2017-03-12 08:11 | PN ---
Date/Time of Note Date/Time of Note DATE: 03/12/17 TIME: 08:10 Assessment/Plan VTE Prophylaxis VTE Prophylaxis Intervention: SCD's Lines/Catheters IV Catheter Type (from Nrs): Peripheral IV Urinary Cath still in place: No Assessment/Plan Assessment/Plan Atrial fibrillation with rapid ventricular rates, improved Preserved ejection fraction Encephalopathy Abnormal renal function Lung mass -Patient remains in atrial fibrillation. In discussion with family yesterday, patient has not seen a physician in quite some time and noncompliant with medications. Hold off on anticoagulant in the current time given patient with lung mass and possible procedures. The patient also found wandering in the street with encephalopathy, I am concerned the risks of anticoagulation might outweigh the benefits. Subjective 24 Hr Interval Summary Free Text/Dictation the patient with no complaints Exam/Review of Systems Vital Signs Vitals Vital Signs Date Time Temp Pulse Resp B/P Pulse Ox O2 Delivery O2 Flow Rate FiO2 03/12/17 08:10 87 03/12/17 07:48 97.8 16 152/70 95 03/10/17 11:30 Room Air 03/10/17 11:15 2.0 03/10/17 03:06 21 Intake and Output 03/11/17 03/11/17 03/12/17 15:00 23:00 07:00 Intake Total 1000 ml 320 ml Output Total 1200 ml 800 ml Balance -200 ml -480 ml Results Result Diagram: 03/12/17 0646 03/11/17 0654 Results 24 hrs Laboratory Tests Test 03/12/17 06:46 White Blood Count 12.2 H Red Blood Count 4.82 Hemoglobin 13.6 L Hematocrit 43.1 Mean Corpuscular Volume 89.4 Mean Corpuscular Hemoglobin 28.2 L Mean Corpuscular Hemoglobin Concent 31.6 L Red Cell Distribution Width 13.8 Platelet Count 299 Mean Platelet Volume 10.8 H Neutrophils % 63.5 Lymphocytes % 26.2 Monocytes % 8.1 Eosinophils % 1.1 Basophils % 0.5 Nucleated Red Blood Cells % 0.0 Neutrophils # 7.8 H Lymphocytes # 3.2 H Monocytes # 1.0 H Eosinophils # 0.1 Basophils # 0.1 Nucleated Red Blood Cells # 0.0 Sodium Level 138 Potassium Level 4.5 Chloride Level 106 Carbon Dioxide Level 26 Anion Gap 11 Blood Urea Nitrogen 28 H Creatinine 1.33 H Glucose Level 70 Calcium Level 9.1 Medications Medications Current Medications Ondansetron HCl (Zofran Inj) 4 mg Q6H PRN IV NAUSEA AND/OR VOMITING; Start at 01:30 Aspirin (Aspirin) 81 mg DAILY PO Last administered on 03/11/17 09:06; Admin Dose 81 MG; Start 03/06/17 at 09:00 Nitroglycerin (Nitroglycerin (Sl Tab) 0.4 Mg) 1 tab Q5M PRN SL CHEST PAIN; Start 03/06/17 at 01:30 Acetaminophen (Tylenol Tab) 650 mg Q6H PRN PO PAIN LEVEL 1-3 OR FEVER; Start at 01:30 Morphine Sulfate (morphine) 2 mg Q4H PRN IV PAIN LEVEL 7-10; Start 03/06/17 at 01:30 Famotidine (Pepcid) 20 mg DAILY PO Last administered on 03/11/17 09:06; Admin Dose 20 MG; Start 03/06/17 at 09:00 Heparin Sodium (Porcine) (Heparin (5000 Units/0.5 ml)) 5,000 unit Q12 SC Last administered on 03/11/17 20:22; Admin Dose 5,000 UNIT; Start 03/06/17 at 09:00 Metoprolol Tartrate (Lopressor) 25 mg BID PO Last administered on 03/11/17 20: 20; Admin Dose 25 MG; Start 03/06/17 at 01:30 Memantine 5 mg 5 mg DAILY PO Last administered on 03/11/17 09:06; Admin Dose 5 MG; Start 03/10/17 at 09:00 Ceftriaxone Sodium 50 ml @ 100 mls/hr Q24H IVPB Last administered on 11:18; Admin Dose 100 MLS/HR; Start 03/10/17 at 11:00 Vancomycin HCl (Vancocin) 250 ml @ 125 mls/hr Q24H IVPB Last administered on 03/11/17 14:10; Admin Dose 125 MLS/HR; Start 03/11/17 at 12:00 Lorazepam (Ativan) 0.5 mg Q4H PRN IV ANXIETY Last administered on 03/11/17 21: 25; Admin Dose 0.5 MG; Start 03/11/17 at 21:30 JAY JAY DIAZ MD Mar 12, 2017 08:11
--- NOTE | 2017-03-12 08:30 | PN ---
Date/Time of Note Date/Time of Note DATE: 03/12/17 TIME: 08:25 Assessment/Plan VTE Prophylaxis VTE Prophylaxis Intervention: heparin Lines/Catheters IV [facility] (from [facility] Peripheral IV Urinary Cath still in place: No Assessment/Plan Chief Complaint/Hosp Course 86 yo male, brought to the ER by paramedics after he was found confused and walking around [employer]. NEURO: Acute encephalopathy with underlying possible Alzheimer type dementia. Patient again with periods of confusion/agitation. -neurology eval appreciated and on Namenda. -Continue PRN Ativan. -Supportive care, Fall precaution. CARDS: (1).A. fib with RVR, stable rate controlled: -Not a candidate for anticoag per cards 2/2 fall risk. -On Multaq. (2).Hypertension.Stable -Continue metoprolol. PULM: (1). 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 Elevated CA 19. -Pulmonary evaluation greatly appreciated. Status postbronchoscopy. F/u biopsy findings. (2).Small left pleural effusion.Stable. -monitor. RENAL: Acute kidney injury likley dehydration. Resolved. Renal US with normal echogenicity bilaterally. 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 -Follow-up with lung biopsy findings. INFECTIOUS: (1)Gram-positive bacteremia in 1 set. Possibly contamination. Blood CS #2 set negative so far.[facility] with possible contamination. -Follow-up final cultures. Continue ceftriaxone and vancomycin prophylactically. (2) leukocytosis, likely reactive vs secondary to #1.Stable. -Continue abx.F/u final CS, West Nile serology. DVT prophylaxis: Heparin DISP: Not safe for home discharge. CM for SNF placement once medically stable. F/u with biopsy findings. Continue Fall precaution. Case d/w patient's PCP over phone. Patient was seen in collaboration with . Problems: Subjective 24 Hr Interval Summary Free Text/Dictation Patient with confusion/agitation requiring Haldol and Ativan. Currently he is alert and cooperative. Patient also with sitter. Exam/Review of Systems Vital Signs Vitals Vital Signs Date Time Temp Pulse Resp B/P Pulse Ox O2 Delivery O2 Flow Rate FiO2 03/12/17 08:10 87 03/12/17 07:48 97.8 16 152/70 95 03/10/17 11:30 Room Air 03/10/17 11:15 2.0 03/10/17 03:06 21 Intake and Output 03/11/17 03/11/17 03/12/17 15:00 23:00 07:00 Intake Total 1000 ml 320 ml Output Total 1200 ml 800 ml Balance -200 ml -480 ml Exam General: Elderly male, not in any acute distress . HEENT: 58-year-old male with a history of type 2 diabetes who presented to the ER complaining of fever, cough, diarrhea, total body ache and right ankle swelling.Normocephalic, Atraumatic, No laceration or hematoma; Eyes: PEERL, Conjunctiva clear, Anicteric sclera Neck: Supple without any lymphadenopathy, nontender, no JVD, no carotid bruits, trachea midline, no thyromegaly Cardiac: S1, S2 auscultated, regular rhythm and rate, no mumurs or gallop Pulmonary: Normal respiratory effort. Chest clear to auscultation bilaterally, no adventitious breath sounds GI: Abdomen normal to inspection. Soft, non tender, non- distended, no masses, no rebound tenderness or guarding. Bowel sounds active on all four quadrants Genitourinary: Deferred Extremities: No cyanosis, clubbing, or edema. Pulses [2+] bilaterally. Full ROM on all four extremities. No focal weakness appreciated. Neurologic: Alert/Ox2-Confused/Disoriented to time and situation. Skin: Generally, skin with dry flaky with rashes. Results Result Diagram: 03/12/17 0646 03/12/17 0646 Results 24 hrs Laboratory Tests Test 03/12/17 06:46 White Blood Count 12.2 H Red Blood Count 4.82 Hemoglobin 13.6 L Hematocrit 43.1 Mean Corpuscular Volume 89.4 Mean Corpuscular Hemoglobin 28.2 L Mean Corpuscular Hemoglobin Concent 31.6 L Red Cell Distribution Width 13.8 Platelet Count 299 Mean Platelet Volume 10.8 H Neutrophils % 63.5 Lymphocytes % 26.2 Monocytes % 8.1 Eosinophils % 1.1 Basophils % 0.5 Nucleated Red Blood Cells % 0.0 Neutrophils # 7.8 H Lymphocytes # 3.2 H Monocytes # 1.0 H Eosinophils # 0.1 Basophils # 0.1 Nucleated Red Blood Cells # 0.0 Sodium Level 138 Potassium Level 4.5 Chloride Level 106 Carbon Dioxide Level 26 Anion Gap 11 Blood Urea Nitrogen 28 H Creatinine 1.33 H Glucose Level 70 Calcium Level 9.1 Medications Medications Current Medications Ondansetron HCl (Zofran Inj) 4 mg Q6H PRN IV NAUSEA AND/OR VOMITING; Start at 01:30 Aspirin (Aspirin) 81 mg DAILY PO Last administered on 03/11/17 09:06; Admin Dose 81 MG; Start 03/06/17 at 09:00 Nitroglycerin (Nitroglycerin (Sl Tab) 0.4 Mg) 1 tab Q5M PRN SL CHEST PAIN; Start 03/06/17 at 01:30 Acetaminophen (Tylenol Tab) 650 mg Q6H PRN PO PAIN LEVEL 1-3 OR FEVER; Start at 01:30 Morphine Sulfate (morphine) 2 mg Q4H PRN IV PAIN LEVEL 7-10; Start 03/06/17 at 01:30 Famotidine (Pepcid) 20 mg DAILY PO Last administered on 03/11/17 09:06; Admin Dose 20 MG; Start 03/06/17 at 09:00 Heparin Sodium (Porcine) (Heparin (5000 Units/0.5 ml)) 5,000 unit Q12 SC Last administered on 03/11/17 20:22; Admin Dose 5,000 UNIT; Start 03/06/17 at 09:00 Metoprolol Tartrate (Lopressor) 25 mg BID PO Last administered on 03/11/17 20: 20; Admin Dose 25 MG; Start 03/06/17 at 01:30 Memantine 5 mg 5 mg DAILY PO Last administered on 03/11/17 09:06; Admin Dose 5 MG; Start 03/10/17 at 09:00 Ceftriaxone Sodium 50 ml @ 100 mls/hr Q24H IVPB Last administered on 11:18; Admin Dose 100 MLS/HR; Start 03/10/17 at 11:00 Vancomycin HCl (Vancocin) 250 ml @ 125 mls/hr Q24H IVPB Last administered on 03/11/17 14:10; Admin Dose 125 MLS/HR; Start 03/11/17 at 12:00 Lorazepam (Ativan) 0.5 mg Q4H PRN IV ANXIETY Last administered on 03/11/17 21: 25; Admin Dose 0.5 MG; Start 03/11/17 at 21:30 ALEJANDRINA WRIGHT NP Mar 12, 2017 08:30
[2017-03-12] MEDS: METOPROLOL 25 MG TAB PO SCH ×2 (09:53→21:28)
[2017-03-12] MEDS: FAMOTIDINE 20 MG TAB PO SCH (09:53)
[2017-03-12] MEDS: MEMANTINE 5 MG TAB PO SCH (09:54)
[2017-03-12] MEDS: ASPIRIN 81 MG TAB PO SCH (09:54)
[2017-03-12] MEDS: HEPARIN 5,000 UNIT/0.5 ML VIAL SC SCH ×2 (10:01→21:39)
--- NOTE | 2017-03-12 10:58 | CONS ---
Date/Time of Note Date/Time of Note DATE: 03/12/17 TIME: 10:57 Consult Date/Type/Reason Admit Date/Time Mar 05, 2017 at 21:29 Type of Consultation: Pulmonary Subjective Awake alert comfortable this morning. Denies any hemoptysis or shortness of breath. Objective Vital Signs Date Time Temp Pulse Resp B/P Pulse Ox O2 Delivery O2 Flow Rate FiO2 03/12/17 08:10 87 03/12/17 07:48 97.8 16 152/70 95 03/10/17 11:30 Room Air 03/10/17 11:15 2.0 03/10/17 03:06 21 Intake and Output 03/11/17 03/11/17 03/12/17 15:00 23:00 07:00 Intake Total 1000 ml 320 ml Output Total 1200 ml 800 ml Balance -200 ml -480 ml Exam GENERAL: Elderly gentleman comfortable at rest no acute distress VITAL SIGNS: per chart NECK: Supple. No JVD or lymphadenopathy. CARDIAC EXAM: S1, S2. No added sounds or murmurs. CHEST: clear bilaterally, No added sounds, rales or wheezes ABDOMEN: Soft, nontender. No guarding or rebound. EXTREMITIES: No cyanosis, clubbing or edema. NEUROLOGIC: Generalized weakness. No focal deficits. Results/Medications Result Diagram: 03/12/1746 03/12/1746 Results 24 hrs Laboratory Tests Test 03/12/17 06:46 White Blood Count 12.2 H Red Blood Count 4.82 Hemoglobin 13.6 L Hematocrit 43.1 Mean Corpuscular Volume 89.4 Mean Corpuscular Hemoglobin 28.2 L Mean Corpuscular Hemoglobin Concent 31.6 L Red Cell Distribution Width 13.8 Platelet Count 299 Mean Platelet Volume 10.8 H Neutrophils % 63.5 Lymphocytes % 26.2 Monocytes % 8.1 Eosinophils % 1.1 Basophils % 0.5 Nucleated Red Blood Cells % 0.0 Neutrophils # 7.8 H Lymphocytes # 3.2 H Monocytes # 1.0 H Eosinophils # 0.1 Basophils # 0.1 Nucleated Red Blood Cells # 0.0 Sodium Level 138 Potassium Level 4.5 Chloride Level 106 Carbon Dioxide Level 26 Anion Gap 11 Blood Urea Nitrogen 28 H Creatinine 1.33 H Glucose Level 70 Calcium Level 9.1 Medications Current Medications Ondansetron HCl (Zofran Inj) 4 mg Q6H PRN IV NAUSEA AND/OR VOMITING; Start at 01:30 Aspirin (Aspirin) 81 mg DAILY PO Last administered on 03/12/17 09:54; Admin Dose 81 MG; Start 03/06/17 at 09:00 Nitroglycerin (Nitroglycerin (Sl Tab) 0.4 Mg) 1 tab Q5M PRN SL CHEST PAIN; Start 03/06/17 at 01:30 Acetaminophen (Tylenol Tab) 650 mg Q6H PRN PO PAIN LEVEL 1-3 OR FEVER; Start at 01:30 Morphine Sulfate (morphine) 2 mg Q4H PRN IV PAIN LEVEL 7-10; Start 03/06/17 at 01:30 Famotidine (Pepcid) 20 mg DAILY PO Last administered on 03/12/17 09:53; Admin Dose 20 MG; Start 03/06/17 at 09:00 Heparin Sodium (Porcine) (Heparin (5000 Units/0.5 ml)) 5,000 unit Q12 SC Last administered on 03/12/17 10:01; Admin Dose 5,000 UNIT; Start 03/06/17 at 09:00 Metoprolol Tartrate (Lopressor) 25 mg BID PO Last administered on 03/12/17 09: 53; Admin Dose 25 MG; Start 03/06/17 at 01:30 Memantine 5 mg 5 mg DAILY PO Last administered on 03/12/17 09:54; Admin Dose 5 MG; Start 03/10/17 at 09:00 Ceftriaxone Sodium (Rocephin) 50 ml @ 100 mls/hr Q24H IVPB Last administered on 03/11/17 11:18; Admin Dose 100 MLS/HR; Start 03/10/17 at 11:00 Lorazepam 0.5 mg 0.5 mg Q4H PRN IV ANXIETY Last administered on 03/11/17 21:25 ; Admin Dose 0.5 MG; Start 03/11/17 at 21:30 Vancomycin HCl (Vancocin) 250 ml @ 125 mls/hr Q24H IVPB ; Start 03/12/17 at 14: 00 Assessment/Plan Chief Complaint/Hosp Course Assessment 1. Encephalopathy appears to be slowly resolving. Still having episodes of sundowning per staff. 2. Left lingular mass. Status post bronchoscopy today. Results will take 2-3 working days. Would recommend keeping patient in the hospital until we have a result and plan of care. 3. Will require PET CT and PFTs. Potentially this is a resectable lesion. Plan 1. Continue neuro recommendations 2. Await lung biopsy results 3. Outpatient PET CT. will order preop PFTs. Problems: ADOLFO QUISPE MD, [facility] Mar 12, 2017 10:58
[2017-03-12] MEDS: CEFTRIAXONE 1 GM/50 ML (PMX) 50 ML IVPB SCH (11:27)
[2017-03-12] MEDS ORDERED: VANCOMYCIN 1 GM in NS 250 ML IVPB SCH (14:00)
[2017-03-13] VITALS (12 sets, daily range): BP systolic 124–143; BP diastolic 74–95; PULSE 73–93; RESP 18–19
--- NOTE | 2017-03-13 08:16 | PN ---
Date/Time of Note Date/Time of Note DATE: 03/13/17 TIME: 08:15 Assessment/Plan VTE Prophylaxis VTE Prophylaxis Intervention: SCD's Lines/Catheters IV Catheter Type (from Nrs): Saline Lock Urinary Cath still in place: No Assessment/Plan Assessment/Plan Atrial fibrillation with rapid ventricular rates, improved Preserved ejection fraction Encephalopathy Abnormal renal function Lung mass -Patient remains in atrial fibrillation. patient has not seen a physician in quite some time and noncompliant with medications. Hold off on anticoagulant in the current time given patient with lung mass and possible procedures. The patient also found wandering in the street with encephalopathy, I am concerned the risks of anticoagulation might outweigh the benefits. -currently rate controlled Subjective 24 Hr Interval Summary Free Text/Dictation the patient with no complaints Exam/Review of Systems Vital Signs Vitals Vital Signs Date Time Temp Pulse Resp B/P Pulse Ox O2 Delivery O2 Flow Rate FiO2 03/13/17 07:27 98.0 86 18 137/95 98 03/10/17 11:30 Room Air 03/10/17 11:15 2.0 03/10/17 03:06 21 Intake and Output 03/12/17 03/12/17 03/13/17 15:00 23:00 07:00 Intake Total 50 ml 1270 ml 300 ml Output Total 875 ml Balance 50 ml 1270 ml -575 ml Results Result Diagram: 03/12/17 0646 03/12/17 0646 Medications Medications Current Medications Ondansetron HCl (Zofran Inj) 4 mg Q6H PRN IV NAUSEA AND/OR VOMITING; Start at 01:30 Aspirin (Aspirin) 81 mg DAILY PO Last administered on 03/12/17 09:54; Admin Dose 81 MG; Start 03/06/17 at 09:00 Nitroglycerin (Nitroglycerin (Sl Tab) 0.4 Mg) 1 tab Q5M PRN SL CHEST PAIN; Start 03/06/17 at 01:30 Acetaminophen (Tylenol Tab) 650 mg Q6H PRN PO PAIN LEVEL 1-3 OR FEVER; Start at 01:30 Morphine Sulfate (morphine) 2 mg Q4H PRN IV PAIN LEVEL 7-10; Start 03/06/17 at 01:30 Famotidine (Pepcid) 20 mg DAILY PO Last administered on 03/12/17 09:53; Admin Dose 20 MG; Start 03/06/17 at 09:00 Heparin Sodium (Porcine) (Heparin (5000 Units/0.5 ml)) 5,000 unit Q12 SC Last administered on 03/12/17 21:39; Admin Dose 5,000 UNIT; Start 03/06/17 at 09:00 Metoprolol Tartrate (Lopressor) 25 mg BID PO Last administered on 03/12/17 21: 28; Admin Dose 25 MG; Start 03/06/17 at 01:30 Memantine 5 mg 5 mg DAILY PO Last administered on 03/12/17 09:54; Admin Dose 5 MG; Start 03/10/17 at 09:00 Ceftriaxone Sodium (Rocephin) 50 ml @ 100 mls/hr Q24H IVPB Last administered on 03/12/17 11:27; Admin Dose 100 MLS/HR; Start 03/10/17 at 11:00 Lorazepam 0.5 mg 0.5 mg Q4H PRN IV ANXIETY Last administered on 03/11/17 21:25 ; Admin Dose 0.5 MG; Start 03/11/17 at 21:30 Vancomycin HCl (Vancocin) 250 ml @ 125 mls/hr Q24H IVPB Last administered on 03/12/17 13:27; Admin Dose 125 MLS/HR; Start 03/12/17 at 14:00 Miscellaneous Information (*Rx Drug Level Order Reminder*) 1 ONCE ONCE XX ; Start 03/13/17 at 13:00; Stop 03/13/17 at 13:01 JAY JAY DIAZ MD Mar 13, 2017 08:16
[2017-03-13 08:25] LABS: BASOPHILS % 0.4 % (0.0-2.0); EOSINOPHILS # 0.2 10^3/ul (0.0-0.5); EOSINOPHILS % 1.8 % (0.0-7.0); HEMATOCRIT 42.4 % (42.0-52.0); HEMOGLOBIN 13.4 g/dl (14.0-18.0); LYMPHOCYTES # 2.5 10^3/ul (0.8-2.9); LYMPHOCYTES % 26.9 % (15.0-51.0); MEAN CORPUSCULAR HEMOGLOBIN 28.2 pg (29.0-33.0); MEAN CORPUSCULAR HGB CONC 31.6 g/dl (32.0-37.0); MEAN CORPUSCULAR VOLUME 89.1 fl (82.0-101.0); MONOCYTE # 0.8 10^3/ul (0.3-0.9); NEUTROPHIL # 5.9 10^3/ul (1.6-7.5); NEUTROPHILS % 62.6 % (39.0-77.0); PLATELET COUNT 308 10^3/UL (140-415); RED BLOOD COUNT 4.76 10^6/ul (4.70-6.10); RED CELL DISTRIBUTION WIDTH 13.8 % (11.5-14.5); WHITE BLOOD COUNT 9.4 10^3/ul (4.8-10.8)
[2017-03-13] MEDS: MEMANTINE 5 MG TAB PO SCH (08:59)
[2017-03-13] MEDS: FAMOTIDINE 20 MG TAB PO SCH (08:59)
[2017-03-13] MEDS: ASPIRIN 81 MG TAB PO SCH (08:59)
[2017-03-13] MEDS: METOPROLOL 25 MG TAB PO SCH ×2 (09:00→20:25)
[2017-03-13 09:01] LABS: CALCIUM 8.9 mg/dl (8.4-10.2); CREATININE 1.23 mg/dl (0.61-1.24); POTASSIUM 4.5 mmol/L (3.5-5.1)
[2017-03-13] MEDS: HEPARIN 5,000 UNIT/0.5 ML VIAL SC SCH ×2 (09:01→20:41)
[2017-03-13 09:03] LABS: MAGNESIUM 1.9 mg/dl (1.7-2.5)
[2017-03-13] MEDS: CEFTRIAXONE 1 GM/50 ML (PMX) 50 ML IVPB SCH (11:59)
--- NOTE | 2017-03-13 12:34 | PN ---
Date/Time of Note Date/Time of Note DATE: 03/13/17 TIME: 12:26 Assessment/Plan VTE Prophylaxis VTE Prophylaxis Intervention: heparin Lines/Catheters IV [facility]ter Type (from [facility]): Saline Lock Urinary Cath still in place: No Assessment/Plan Assessment/Plan 1. Acute encephalopathy with underlying possible Alzheimer type dementia. Patient again with periods of confusion/agitation. 2. A. fib with RVR, stable rate controlled: -Not a candidate for anticoag per cards 2/2 fall risk and risks outweigh benefit , Cardiology following 3. Hypertension.Stable - Continue metoprolol. 4. 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 Elevated CA 19. -Pulmonary evaluation greatly appreciated. Status postbronchoscopy. 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 Acute kidney injury likley dehydration. Resolved. Renal US with normal echogenicity bilaterally. 6. 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 7. Gram-positive bacteremia in 1 set. Possibly contamination. Blood CS #2 set negative so far.[facility] with possible contamination.d/c all antibiotics , West Nile serology negative DVT prophylaxis: Heparin DISP: SNF placement when medically stable Subjective 24 Hr Interval Summary Free Text/Dictation stable, no acute events, BP stable, Exam/Review of Systems Vital Signs Vitals Vital Signs Date Time Temp Pulse Resp B/P Pulse Ox O2 Delivery O2 Flow Rate FiO2 03/13/17 11:36 98.0 78 18 124/83 98 03/10/17 11:30 Room Air 03/10/17 11:15 2.0 03/10/17 03:06 21 Intake and Output 03/12/17 03/12/17 03/13/17 15:00 23:00 07:00 Intake Total 50 ml 1270 ml 300 ml Output Total 875 ml Balance 50 ml 1270 ml -575 ml Exam Constitutional: alert Psych: no complaints Head: normocephalic Neck: non-tender, supple Respiratory: clear to auscultation, normal air movement Cardiovascular: nl pulses, regular rate and rhythm Gastrointestinal: non-tender, soft Musculoskeletal: nl extremities to inspection, nl gait and stance Neurological: [employer] II-XII intact Results Result Diagram: 03/13/17 0704 03/13/17 0704 Results 24 hrs Laboratory Tests Test 03/13/17 07:04 White Blood Count 9.4 # Red Blood Count 4.76 Hemoglobin 13.4 L Hematocrit 42.4 Mean Corpuscular Volume 89.1 Mean Corpuscular Hemoglobin 28.2 L Mean Corpuscular Hemoglobin Concent 31.6 L Red Cell Distribution Width 13.8 Platelet Count 308 Mean Platelet Volume 11.0 H Neutrophils % 62.6 Lymphocytes % 26.9 Monocytes % 8.0 Eosinophils % 1.8 Basophils % 0.4 Nucleated Red Blood Cells % 0.0 Neutrophils # 5.9 Lymphocytes # 2.5 Monocytes # 0.8 Eosinophils # 0.2 Basophils # 0.0 Nucleated Red Blood Cells # 0.0 Sodium Level 140 Potassium Level 4.5 Chloride Level 106 Carbon Dioxide Level 26 Anion Gap 13 Blood Urea Nitrogen 24 H Creatinine 1.23 Glucose Level 78 Calcium Level 8.9 Magnesium Level 1.9 Prealbumin 16.0 L Medications Medications Current Medications Ondansetron HCl (Zofran Inj) 4 mg Q6H PRN IV NAUSEA AND/OR VOMITING; Start at 01:30 Aspirin (Aspirin) 81 mg DAILY PO Last administered on 03/13/17 08:59; Admin Dose 81 MG; Start 03/06/17 at 09:00 Nitroglycerin (Nitroglycerin (Sl Tab) 0.4 Mg) 1 tab Q5M PRN SL CHEST PAIN; Start 03/06/17 at 01:30 Acetaminophen (Tylenol Tab) 650 mg Q6H PRN PO PAIN LEVEL 1-3 OR FEVER; Start at 01:30 Morphine Sulfate (morphine) 2 mg Q4H PRN IV PAIN LEVEL 7-10; Start 03/06/17 at 01:30 Famotidine (Pepcid) 20 mg DAILY PO Last administered on 03/13/17 08:59; Admin Dose 20 MG; Start 03/06/17 at 09:00 Heparin Sodium (Porcine) (Heparin (5000 Units/0.5 ml)) 5,000 unit Q12 SC Last administered on 03/13/17 09:01; Admin Dose 5,000 UNIT; Start 03/06/17 at 09:00 Metoprolol Tartrate (Lopressor) 25 mg BID PO Last administered on 03/13/17 09: 00; Admin Dose 25 MG; Start 03/06/17 at 01:30 Memantine 5 mg 5 mg DAILY PO Last administered on 03/13/17 08:59; Admin Dose 5 MG; Start 03/10/17 at 09:00 Ceftriaxone Sodium (Rocephin) 50 ml @ 100 mls/hr Q24H IVPB Last administered on 03/13/17 11:59; Admin Dose 100 MLS/HR; Start 03/10/17 at 11:00 Lorazepam 0.5 mg 0.5 mg Q4H PRN IV ANXIETY Last administered on 03/11/17 21:25 ; Admin Dose 0.5 MG; Start 03/11/17 at 21:30 Vancomycin HCl (Vancocin) 250 ml @ 125 mls/hr Q24H IVPB Last administered on 03/12/17 13:27; Admin Dose 125 MLS/HR; Start 03/12/17 at 14:00 Miscellaneous Information (*Rx Drug Level Order Reminder*) 1 ONCE ONCE XX ; Start 03/13/17 at 13:00; Stop 03/13/17 at 13:01 JHONY COONEY MD Mar 13, 2017 12:34
--- NOTE | 2017-03-13 12:36 | PDOCDIS ---
Discharge Instructions CONDITION Patient Condition: Good HOME CARE INSTRUCTIONS: Diet Instructions: RegularSpecial Diet: Cardiac Diet ACTIVITY: Activity Restrictions: Slowly Increase Activity Rest between Activity Avoid heavy lifting Avoid Heavy Housework FOLLOW UP/APPOINTMENTS Follow-up Plan follow up with physician at SNF. follow up with Oncology physician as outpatient as per Family choice( he will likely have his lung biopsy report positive for cancer) follow up with Neurology Dr. Parkinson as outpatient in 1-2 week after discharge JHONY COONEY MD Mar 13, 2017 12:36
--- NOTE | 2017-03-13 12:38 | DS ---
Date/Time of Note Date/Time of Note DATE: 03/13/17 TIME: 12:38 Discharge Summary Admission/Discharge Info Admit Date/Time Mar 05, 2017 at 21:29 Discharge Date/Time Mar 14, 2017 Discharge Diagnosis 1. Acute encephalopathy with underlying possible Alzheimer type dementia 2. A. fib with RVR, stable rate controlled: -Not a candidate for anticoag per cards 2/2 fall risk and risks outweigh benefit , Cardiology following 3. Hypertension. 4. 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 Elevated CA 19. -Pulmonary evaluation greatly appreciated. Status postbronchoscopy. 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 Acute kidney injury 2/2 Prerenal azotemis, improved with IVF hydration. 6. 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 7. Gram-positive bacteremia in 1 set. Possibly contamination. Blood CS #2 set negative so far.west nile serology negative Patient Condition: Good Consults Pulmonary Dr.Sanjay Amor Cardiology Procedures 1. Brain MRI done 2. BRonchoscopy with Lung biopsy was done by Pulmonary Hx of Present Illness 86-year-old male with a history of hypertension, A-fib and recently diagnosed frontal scalp skin cancer status post surgical removal. Patient was brought to the ER for altered mentation. His is currently at a facility because of altered mentation. Patient left his house driving to see his . He was however found by police walking around [employer]. Seems like he has been wandering around for a few hours. Patient was confused and did not know why he was walking around. Per ER notes, he reported falling down and hitting his head but on my questioning he denied. Currently he does not have any complaints. He is alert and oriented and no neurological deficits on exam. In ER, he was found to be in A-fib with RVR. He was given IV diltiazem and now is rate controlled. Labs shows a WBC of 14.5 and creatinine of 2.[address] of the head showed microangiopathic ischemic change and atrophy. CT of the neck multilevel spondylosis. Chest x-ray with 6 cm mass-like density in the left lower lung. pt gets admitted for work up of lung mass and atrial fibrillation with RVR. Hospital Course 86 yo male was admitted Acute encephalopathy with underlying possible Alzheimer type dementia. Patient again with periods of confusion/agitation.MRI brain negative, Neurology consult was done and pt was started on Namenda. pt other problem was atrial fibrillation with RVR , rate controlled with metoprolol. pt was on Multaq. he was seen by cardiology and he was not a candidate for anticoagulation due to risks of bleeding and fall risk. His hypertension was controlled. He had lingular lung mass concerning for malignancy he was seen by pulmonary Dr.Sanjay Amor, had a bronchoscopy with biopsy. hie Biopsy was positive for Non-keratinizing squamous cell carcinoma. pt had a Acute kidney injury likley dehydration. Resolved. Renal US with normal echogenicity bilaterally. He was discharged to SNF with follow up with outpatient Oncology for further plan.He and family also recommended to have hospice care consult to decide goals of care. He had a Gram-positive bacteremia in 1 set. Possibly contamination. Blood CS #2 set negative he was discharged to SNF. Home Meds Reported Medications Dronedarone Hydrochloride* (Multaq*) 400 Mg Tablet, 400 MG PO BID, TAB 03/05/17 Losartan-Hydrochlorothiazide (Losartan-HCTZ) 50-12.5 Mg Tab, 1 TAB PO DAILY, TAB 03/05/17 Amlodipine Besylate* (Norvasc*) 5 Mg Tablet, 5 MG PO DAILY, TAB 03/05/17 Follow-up Plan follow up with physician at SNF. follow up with Oncology physician as outpatient as per Family choice( he will likely have his lung biopsy report positive for cancer) follow up with Neurology Dr. Parkinson as outpatient in 1-2 week after discharge Primary Care Provider Not On Staff Doctor Time spent on discharge: > 30 minutes Pending Labs Laboratory Tests Test 03/13/17 07:04 White Blood Count 9.410^3/ul (4.8-10.8) Red Blood Count 4.7610^6/ul (4.70-6.10) Hemoglobin 13.4g/dl (14.0-18.0) Hematocrit 42.4% (42.0-52.0) Mean Corpuscular Volume 89.1fl (82.0-101.0) Mean Corpuscular Hemoglobin 28.2pg (29.0-33.0) Mean Corpuscular Hemoglobin Concent 31.6g/dl (32.0-37.0) Red Cell Distribution Width 13.8% (11.5-14.5) Platelet Count 79792^3/UL (140-415) Mean Platelet Volume 11.0fl (7.4-10.4) Neutrophils % 62.6% (39.0-77.0) Lymphocytes % 26.9% (15.0-51.0) Monocytes % 8.0% (0.0-11.0) Eosinophils % 1.8% (0.0-7.0) Basophils % 0.4% (0.0-2.0) Nucleated Red Blood Cells % 0.0/100WBC (0.0-0.0) Neutrophils # 5.910^3/ul (1.6-7.5) Lymphocytes # 2.510^3/ul (0.8-2.9) Monocytes # 0.810^3/ul (0.3-0.9) Eosinophils # 0.210^3/ul (0.0-0.5) Basophils # 0.010^3/ul (0.0-0.1) Nucleated Red Blood Cells # 0.010^3/ul (0.0-0.0) Sodium Level 140mmol/L (135-144) Potassium Level 4.5mmol/L (3.5-5.1) Chloride Level 106mmol/L (97-110) Carbon Dioxide Level 26mmol/L (21-31) Anion Gap 13 (8-16) Blood Urea Nitrogen 24mg/dl (7-20) Creatinine 1.23mg/dl (0.61-1.24) Glucose Level 78mg/dl (70-220) Calcium Level 8.9mg/dl (8.4-10.2) Magnesium Level 1.9mg/dl (1.7-2.5) Prealbumin 16.0mg/dl (17.6-36.0) JHONY COONEY MD Mar 13, 2017 12:38 Magnesium Level 1.9mg/dl (1.7-2.5) Prealbumin 16.0mg/dl (17.6-36.0) JHONY COONEY MD Mar 13, 2017 12:38
--- NOTE | 2017-03-13 15:50 | CONS ---
Date/Time of Note Date/Time of Note DATE: 03/13/17 TIME: 15:48 Consult Date/Type/Reason Admit Date/Time Mar 05, 2017 at 21:29 Type of Consultation: Pulmonary Subjective Patient comfortable. Awake alert. No events. Objective Vital Signs Date Time Temp Pulse Resp B/P Pulse Ox O2 Delivery O2 Flow Rate FiO2 03/13/17 12:44 84 03/13/17 11:36 98.0 18 124/83 98 03/10/17 11:30 Room Air 03/10/17 11:15 2.0 03/10/17 03:06 21 Intake and Output 03/12/17 03/12/17 03/13/17 15:00 23:00 07:00 Intake Total 50 ml 1270 ml 300 ml Output Total 875 ml Balance 50 ml 1270 ml -575 ml Exam GENERAL: VITAL SIGNS: per chart NECK: Supple. No JVD or lymphadenopathy. CARDIAC EXAM: S1, S2. No added sounds or murmurs. CHEST: clear bilaterally, No added sounds, rales or wheezes ABDOMEN: Soft, nontender. No guarding or rebound. EXTREMITIES: No cyanosis, clubbing or edema. NEUROLOGIC: Generalized weakness. No focal deficits. Results/Medications Result Diagram: 03/13/17 0704 03/13/17 0704 Results 24 hrs Laboratory Tests Test 03/13/17 07:04 White Blood Count 9.4 # Red Blood Count 4.76 Hemoglobin 13.4 L Hematocrit 42.4 Mean Corpuscular Volume 89.1 Mean Corpuscular Hemoglobin 28.2 L Mean Corpuscular Hemoglobin Concent 31.6 L Red Cell Distribution Width 13.8 Platelet Count 308 Mean Platelet Volume 11.0 H Neutrophils % 62.6 Lymphocytes % 26.9 Monocytes % 8.0 Eosinophils % 1.8 Basophils % 0.4 Nucleated Red Blood Cells % 0.0 Neutrophils # 5.9 Lymphocytes # 2.5 Monocytes # 0.8 Eosinophils # 0.2 Basophils # 0.0 Nucleated Red Blood Cells # 0.0 Sodium Level 140 Potassium Level 4.5 Chloride Level 106 Carbon Dioxide Level 26 Anion Gap 13 Blood Urea Nitrogen 24 H Creatinine 1.23 Glucose Level 78 Calcium Level 8.9 Magnesium Level 1.9 Prealbumin 16.0 L Medications Current Medications Ondansetron HCl (Zofran Inj) 4 mg Q6H PRN IV NAUSEA AND/OR VOMITING; Start at 01:30 Aspirin (Aspirin) 81 mg DAILY PO Last administered on 03/13/17 08:59; Admin Dose 81 MG; Start 03/06/17 at 09:00 Nitroglycerin (Nitroglycerin (Sl Tab) 0.4 Mg) 1 tab Q5M PRN SL CHEST PAIN; Start 03/06/17 at 01:30 Acetaminophen (Tylenol Tab) 650 mg Q6H PRN PO PAIN LEVEL 1-3 OR FEVER; Start at 01:30 Morphine Sulfate (morphine) 2 mg Q4H PRN IV PAIN LEVEL 7-10; Start 03/06/17 at 01:30 Famotidine (Pepcid) 20 mg DAILY PO Last administered on 03/13/17 08:59; Admin Dose 20 MG; Start 03/06/17 at 09:00 Heparin Sodium (Porcine) (Heparin (5000 Units/0.5 ml)) 5,000 unit Q12 SC Last administered on 03/13/17 09:01; Admin Dose 5,000 UNIT; Start 03/06/17 at 09:00 Metoprolol Tartrate (Lopressor) 25 mg BID PO Last administered on 03/13/17 09: 00; Admin Dose 25 MG; Start 03/06/17 at 01:30 Memantine (Namenda) 5 mg DAILY PO Last administered on 03/13/17 08:59; Admin Dose 5 MG; Start 03/10/17 at 09:00 Lorazepam (Ativan) 0.5 mg Q4H PRN IV ANXIETY Last administered on 03/11/17 21: 25; Admin Dose 0.5 MG; Start 03/11/17 at 21:30 Assessment/Plan Chief Complaint/Hosp Course Assessment 1. Encephalopathy appears to be slowly resolving. Still having episodes of sundowning per staff. 2. Left lingular mass. Status post bronchoscopy, biopsy consistent with squamous cell carcinoma. 3. Will require PET CT and PFTs. Potentially this is a resectable lesion. Plan 1. Case was discussed with patient's primary care physician who states he will pick up worker his care once he is admitted to half-way facility. I explained to him the need for PET/CT and pulmonary function testing. Patient's physician says he will refer him to cardiothoracic surgery Dr. Pratt. Agree with discharge planning. Problems: ADOLFO QUISPE MD, [facility] Mar 13, 2017 15:50
[2017-03-14] VITALS (11 sets, daily range): BP systolic 124–153; BP diastolic 76–101; PULSE 82–100; RESP 18–20
[2017-03-14 07:57] LABS: CALCIUM 8.9 mg/dl (8.4-10.2); CREATININE 1.39 mg/dl (0.61-1.24); POTASSIUM 4.6 mmol/L (3.5-5.1)
[2017-03-14] MEDS: ASPIRIN 81 MG TAB PO SCH (09:09)
[2017-03-14] MEDS: FAMOTIDINE 20 MG TAB PO SCH (09:09)
[2017-03-14] MEDS: MEMANTINE 5 MG TAB PO SCH (09:09)
[2017-03-14] MEDS: METOPROLOL 25 MG TAB PO SCH (09:10)
[2017-03-14] MEDS: HEPARIN 5,000 UNIT/0.5 ML VIAL SC SCH (09:16)
--- NOTE | 2017-03-14 14:36 | PN ---
Date/Time of Note Date/Time of Note DATE: 03/14/17 TIME: 14:34 Assessment/Plan VTE Prophylaxis VTE Prophylaxis Intervention: SCD's Lines/Catheters IV C[facility]ter Type [facility] Saline Lock Urinary Cath still in place: No Assessment/Plan Assessment/Plan 1. Acute encephalopathy with underlying possible Alzheimer type dementia. Patient again with periods of confusion/agitation. 2. A. fib with RVR, stable rate controlled: -Not a candidate for anticoag per cards 2/2 fall risk and risks outweigh benefit , Cardiology following 3. Hypertension.Stable - Continue metoprolol. 4. 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 Elevated CA 19. -Pulmonary evaluation greatly appreciated. Status postbronchoscopy. 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 Acute kidney injury likley dehydration. Resolved. Renal US with normal echogenicity bilaterally. 6. 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 7. Gram-positive bacteremia in 1 set. Possibly contamination. Blood CS #2 set negative so far.[facility] with possible contamination.d/c all antibiotics , West Nile serology negative DVT prophylaxis: Heparin DISP: SNF placement today, no anticoagulation on discahreg dur to risk associated with it Subjective 24 Hr Interval Summary Free Text/Dictation stabkle, HR stable, afebrile, no fever, no chills, Exam/Review of Systems Vital Signs Vitals Vital Signs Date Time Temp Pulse Resp B/P Pulse Ox O2 Delivery O2 Flow Rate FiO2 03/14/17 12:00 100 03/14/17 11:27 98.2 20 148/96 97 03/10/17 11:30 Room Air 03/10/17 11:15 2.0 Intake and Output 03/13/17 03/13/17 03/14/17 15:00 23:00 07:00 Intake Total 800 ml 360 ml Output Total 900 ml 700 ml Balance -100 ml -340 ml Exam Constitutional: alert Psych: no complaints Head: normocephalic Neck: non-tender, supple Respiratory: clear to auscultation, normal air movement Cardiovascular: nl pulses, regular rate and rhythm Gastrointestinal: non-tender, soft Musculoskeletal: nl extremities to inspection, nl gait and stance Neurological: [employer] II-XII intact Results Result Diagram: 10/6/17 0704 10/7/17 0717 Results 24 hrs Laboratory Tests Test 03/14/17 07:17 Sodium Level 139 Potassium Level 4.6 Chloride Level 104 Carbon Dioxide Level 27 Anion Gap 13 Blood Urea Nitrogen 24 H Creatinine 1.39 H Glucose Level 83 Calcium Level 8.9 Medications Medications Current Medications Ondansetron HCl (Zofran Inj) 4 mg Q6H PRN IV NAUSEA AND/OR VOMITING; Start at 01:30 Aspirin (Aspirin) 81 mg DAILY PO Last administered on 03/14/17 09:09; Admin Dose 81 MG; Start 03/06/17 at 09:00 Nitroglycerin (Nitroglycerin (Sl Tab) 0.4 Mg) 1 tab Q5M PRN SL CHEST PAIN; Start 03/06/17 at 01:30 Acetaminophen (Tylenol Tab) 650 mg Q6H PRN PO PAIN LEVEL 1-3 OR FEVER; Start at 01:30 Morphine Sulfate (morphine) 2 mg Q4H PRN IV PAIN LEVEL 7-10; Start 03/06/17 at 01:30 Famotidine (Pepcid) 20 mg DAILY PO Last administered on 03/14/17 09:09; Admin Dose 20 MG; Start 03/06/17 at 09:00 Heparin Sodium (Porcine) (Heparin (5000 Units/0.5 ml)) 5,000 unit Q12 SC Last administered on 03/14/17 09:16; Admin Dose 5,000 UNIT; Start 03/06/17 at 09:00 Metoprolol Tartrate (Lopressor) 25 mg BID PO Last administered on 03/14/17 09: 10; Admin Dose 25 MG; Start 03/06/17 at 01:30 Memantine (Namenda) 5 mg DAILY PO Last administered on 03/14/17 09:09; Admin Dose 5 MG; Start 03/10/17 at 09:00 Lorazepam (Ativan) 0.5 mg Q4H PRN IV ANXIETY Last administered on 03/11/17 21: 25; Admin Dose 0.5 MG; Start 03/11/17 at 21:30 JHONY COONEY MD Mar 14, 2017 14:36
--- NOTE | 2017-03-14 17:06 | CONS ---
Date/Time of Note Date/Time of Note DATE: 03/14/17 TIME: 17:02 Consult Date/Type/Reason Admit Date/Time Mar 05, 2017 at 21:29 Initial Consult Date Type of Consultation: Pulmonary Subjective No events overnight Objective Vital Signs Date Time Temp Pulse Resp B/P Pulse Ox O2 Delivery O2 Flow Rate FiO2 03/14/17 16:00 88 03/14/17 15:28 97.3 19 124/84 96 03/10/17 11:30 Room Air 03/10/17 11:15 2.0 Intake and Output 03/13/17 03/13/17 03/14/17 15:00 23:00 07:00 Intake Total 800 ml 360 ml Output Total 900 ml 700 ml Balance -100 ml -340 ml Exam HEENT: Neck supple; no JVD; no LAD CVS: RRR, S1 and S2 CHEST: Clear ABD: Soft, NT, + BS EXT: No c/c/e Results/Medications Result Diagram: 03/13/17 0704 03/14/17 0717 Results 24 hrs Laboratory Tests Test 03/14/17 07:17 Sodium Level 139 Potassium Level 4.6 Chloride Level 104 Carbon Dioxide Level 27 Anion Gap 13 Blood Urea Nitrogen 24 H Creatinine 1.39 H Glucose Level 83 Calcium Level 8.9 Medications Current Medications Ondansetron HCl (Zofran Inj) 4 mg Q6H PRN IV NAUSEA AND/OR VOMITING; Start at 01:30 Aspirin (Aspirin) 81 mg DAILY PO Last administered on 03/14/17 09:09; Admin Dose 81 MG; Start 03/06/17 at 09:00 Nitroglycerin (Nitroglycerin (Sl Tab) 0.4 Mg) 1 tab Q5M PRN SL CHEST PAIN; Start 03/06/17 at 01:30 Acetaminophen (Tylenol Tab) 650 mg Q6H PRN PO PAIN LEVEL 1-3 OR FEVER; Start at 01:30 Morphine Sulfate (morphine) 2 mg Q4H PRN IV PAIN LEVEL 7-10; Start 03/06/17 at 01:30 Famotidine (Pepcid) 20 mg DAILY PO Last administered on 03/14/17 09:09; Admin Dose 20 MG; Start 03/06/17 at 09:00 Heparin Sodium (Porcine) (Heparin (5000 Units/0.5 ml)) 5,000 unit Q12 SC Last administered on 03/14/17 09:16; Admin Dose 5,000 UNIT; Start 03/06/17 at 09:00 Metoprolol Tartrate (Lopressor) 25 mg BID PO Last administered on 03/14/17 09: 10; Admin Dose 25 MG; Start 03/06/17 at 01:30 Memantine (Namenda) 5 mg DAILY PO Last administered on 03/14/17 09:09; Admin Dose 5 MG; Start 03/10/17 at 09:00 Lorazepam (Ativan) 0.5 mg Q4H PRN IV ANXIETY Last administered on 03/11/17 21: 25; Admin Dose 0.5 MG; Start 03/11/17 at 21:30 Assessment/Plan Additional Assessment/Plan IMP: 1. 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 Will need complete staging with CT/abdomen/pelvis 2. PFTs 3. Mediastinoscopy prior to possible resection THAD CASTELLANO MD Mar 14, 2017 17:06
== END 2017-03-14 17:00 | DRG 987 ==
LOC: E/R 19:06 → TEL 21:29
PROVIDERS: ADMIT Internal Medicine; ATTEND Internal Medicine
PROC: 0BBH8ZX Excision of Lung Lingula, Via Natural or Artificial Opening Endoscopic, Diagnostic (ICD-10-PCS; principal; 2017-03-10 09:30)
DX: N17.9 Acute kidney failure, unspecified (principal); G92 Toxic encephalopathy; G30.9 Alzheimer's disease, unspecified; C34.12 Malignant neoplasm of upper lobe, left bronchus or lung; F02.80 Dementia in other diseases classified elsewhere, unspecified severity, without behavioral disturbance, psychotic disturbance, mood disturbance, and anxiety; I48.91 Unspecified atrial fibrillation; I10 Essential (primary) hypertension; Z91.83 Wandering in diseases classified elsewhere; Z91.14 Patient's other noncompliance with medication regimen; Z87.891 Personal history of nicotine dependence; Z85.828 Personal history of other malignant neoplasm of skin
CPT/HCPCS: 36415; 70450; 70551; 71010; 71250; 72125; 76775; 80048; 80053; 80061; 80306; 80307; 81001; 82105; 82378; 82436; 82550; 82553; 83036; 83615; 83735; 84100; 84132; 84133; 84134; 84155; 84300; 84443; 84484; 85025; 85049; 85610; 85670; 85730; 86301; 86592; 86788; 86789; 87040; 87086; 88307; 92507; 92523; 92610; 93005; 93306; 94060; 94726; 94729; 95819; 96374; 97110; 97116; 97162; 97167; 97530; J2001; J0171; J0696; J1100; J1630; J1644; J2060; J2370; J2405; J3010; J3370; J7030; J7050